=== PATIENT | male | born 1935 | race Caucasian/White ===

== ENCOUNTER 2017-10-31 09:10 | Day surgery (SDC) | payer MEDICARE, OTHER ==
[~2017-10-31 09:10] MED LIST: Gatifloxacin 0.5% Ophth Soln 2.5 ML Bot EYERT SCH; Lactated Ringers 1,000 ML IV SCH; Sodium Chloride 0.9% 5 ML Syringe FLUSH PRN
[2017-10-31] MEDS: Cyclopentolate 1% Opth Soln 2 ML Bottle EYERT SCH ×3 (09:26→10:00)
[2017-10-31] MEDS: Phenylephrine 10% Ophth Soln 5 ML Bot EYERT SCH ×3 (09:30→10:06)
[2017-10-31] MEDS ORDERED: Balanced Salt Solution Plus Ophth Irrig 500 ML Bottle IOCULAR ONE (10:46)
[2017-10-31] MEDS ORDERED: Balanced Salt Solution Ophth Irrig 15 ML Bottle EYERT ONE (10:46)
[2017-10-31] MEDS ORDERED: Water For Irrigation,Sterile 1,500 ML Container IRR ONE (10:46)
[2017-10-31] MEDS ORDERED: Dexamethasone/Neomycin/Polymyxin B Ophth Oint 3.5 GM Tube EYERT ONE (10:47)
[2017-10-31] MEDS ORDERED: Lidocaine 2% with EPINEPHrine 1:100,000 20 ML MDV INJECT ONE (10:47)
[2017-10-31] MEDS ORDERED: EPINEPHrine 1 MG/ML SDV ONE (10:47)
[2017-10-31] MEDS ORDERED: Carbachol 0.01% Intraocular 1.5 ML Vial EYERT ONE (10:47)
[2017-10-31] MEDS ORDERED: Tetracaine HCl/PF 0.5% 4 ML Bottle EYEBOTH ONE (10:48)
[2017-10-31] MEDS ORDERED: Hyaluronate Sodium 1% 0.85 ML Syringe IOCULAR ONE ×2 (10:48)
[2017-10-31] MEDS ORDERED: Lidocaine 1% 10 ML MDV INJECT ONE (10:48)
[2017-10-31 11:30] VITALS: BP 133/70
--- NOTE | 2017-11-01 10:07 | OR ---
DATE OF SURGERY: 10/31/2017 SURGEON: Luis Armando Lou MD PREOPERATIVE DIAGNOSIS: Cataract, right eye. POSTOPERATIVE DIAGNOSIS: Cataract, right eye. OPERATION PERFORMED: Phacoemulsification with posterior chamber lens insertion, right eye. HISTORY: The patient presents at this time with increasing difficulties as he tries to read. The vision for the right eye is 20/150. The lens of the right eye has a 3+ nuclear sclerosis, a 3+ cortical change, and a 2+ posterior subcapsular change. 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 FINDINGS: The patient was taken to the operating room where appropriate anesthesia, sedation and monitoring were provided. A retrobulbar block was given on the right side. The eye was massaged and was found to be appropriately soft. The eye and eyelids were then prepped and draped in the usual sterile manner. A lid speculum was placed. A micro sharp blade was used to enter the anterior chamber inside the limbus superior-temporally. Xylocaine was irrigated into the eye at this site. Healon was irrigated into the eye through this site. Then using a 2.85 mm corneal blade an entry was made into the anterior chamber just inside the limbus temporally. Healon was again irrigated into the eye. Then using a cystitome, the anterior capsulorrhexis was created. The lens nucleus was hydrodissected using a 27 gauge cannula and balanced salt solution. The phacoemulsification unit was introduced through the temporal site and the Michael spatula through the superior temporal site. In so doing, the lens nucleus was phacoemulsified. The cortical fragments of the lens were removed using the irrigation aspiration unit. The posterior capsule was polished. Healon was irrigated into the eye. The posterior chamber lens was inserted and rotated into position inside the capsular bag. The Healon was irrigated out of the eye. Miostat was irrigated into the eye and the pupil rounded nicely. A single interrupted 10-0 Nylon suture was placed through the temporal corneal incision site. Balanced salt solution was irrigated into the eye. The wound was tested and found to be tight. Maxitrol ointment was placed into the patient's right eye. The eyelids were closed and an eye patch and mccartney shield were placed. The patient left the operating room in good condition. /[id number]/MODL
== END 2017-10-31 11:45 | disposition home or self-care (01) ==
LOC: KA.SDS 09:10
PROVIDERS: ATTEND Ophthalmology
DX: H26.9 Unspecified cataract (principal); D64.9 Anemia, unspecified; F32.9 Major depressive disorder, single episode, unspecified; M51.36 Other intervertebral disc degeneration, lumbar region; M81.0 Age-related osteoporosis without current pathological fracture; M19.072 Primary osteoarthritis, left ankle and foot; M19.071 Primary osteoarthritis, right ankle and foot; M48.061 Spinal stenosis, lumbar region without neurogenic claudication; M41.9 Scoliosis, unspecified; N40.0 Benign prostatic hyperplasia without lower urinary tract symptoms; D50.9 Iron deficiency anemia, unspecified; Z85.828 Personal history of other malignant neoplasm of skin; Z79.899 Other long term (current) drug therapy; Z79.82 Long term (current) use of aspirin; Z88.0 Allergy status to penicillin; Z91.030 Bee allergy status
CPT/HCPCS: 00142; A9270-GY; C1780; J0171; J7120

== ENCOUNTER 2017-11-12 15:30 | Inpatient (IN) | payer MEDICARE, OTHER ==
[2017-11-12] MEDS ORDERED: Albuterol/Ipratropium 3.0-0.5 MG/3 ML Neb Soln NEB ONE (16:12)
--- NOTE | 2017-11-12 16:19 | EDM.PDOC ---
ED HPI GENERAL MEDICAL PROBLEM - General Chief Complaint: Respiratory Problem Stated Complaint: SHORTNESS OF BREATH Time Seen by Provider: 11/12/17 15:48 Source of Information: Reports: Patient, Family ( ) History Limitations: Reports: No Limitations - History of Present Illness INITIAL COMMENTS - FREE TEXT/NARRATIVE: PATIENT IS AN 82-YEAR-OLD GENTLEMAN WHO PRESENTS TO THE EMERGENCY DEPARTMENT THIS AFTERNOON WITH A COMPLAINT OF SHORTNESS OF BREATH. PATIENT STATES THAT WHILE HE IS IN THE BASEMENT OF HIS HOME, HE NOTICES THAT IT BECOMES HARDER TO BREATHE, AND HE WALKS UP THE STAIRS TO THE FIRST LEVEL OF THE HOME. HE BECOMES MORE SHORT OF BREATH HE WALKS UP THE STAIRS. HOWEVER, AFTER SITTING AND RESTING FOR A SHORT PERIOD OF TIME WHILE ON THE FIRST FLOOR, SHORTNESS OF BREATH RESOLVES. AT NO TIME DOES PATIENT HAVE CHEST PAIN, DIZZINESS, OR VISION CHANGES. NOTICED THIS HAPPENING MORE FREQUENTLY. IT'S BEEN OCCURRING APPROXIMATELY TWICE PER DAY FOR THE LAST WEEK. PATIENT STATES THAT THE FUEL OIL SUPPLY IS LOCATED IN THE BASEMENT, BUT IS UNAWARE OF ANY FUMES OR NOTICES ANY ODOR. PATIENT HAS ALSO DEVELOPED MILD SHAKING OF THE HANDS, AND HIS PRIMARY CARE PROVIDER HAS ADDRESSED THIS WITH A FOLLOW-UP VISIT TO DETERMINE IF HE HAS PARKINSON'S DISEASE. PATIENT DID UNDERGO BILATERAL CATARACT SURGERY 2 WEEKS AGO, WELL SUSPECTED MALIGNANT LESIONS ON FACE REMOVED LAST WEEK BY DERMATOLOGY. PATIENT DENIES FEVER, CHEST PAIN, NAUSEA, VOMITING, DIARRHEA, OUT OF COUNTRY TRAVEL, HEADACHE OR DIZZINESS. Onset: Gradual Duration: Week(s): Severity: Mild Improves with: Reports: Rest Worsens with: Reports: Movement Context: Reports: Activity Associated Symptoms: Reports: Shortness of Breath. Denies: Chest Pain - Related Data Allergies Allergy/AdvReac Type Severity Reaction Status Date / Time Penicillins Allergy Hives Verified 11/12/17 15:39 BEE STINGS Allergy UNKNOWN Uncoded 11/12/17 15:39 Home Meds: Home Meds Acetaminophen [Tylenol Extra Strength] 1,000 mg PO TID 03/16/14 [History] DULoxetine [Cymbalta] 60 mg PO DAILY 03/16/14 [History] Multivitamin [Multi Vitamin Daily] 1 tab PO DAILY 03/16/14 [History] Omeprazole 60 mg PO DAILY 03/16/14 [History] traMADol [Ultram] 50 mg PO TID 03/16/14 [History] Ascorbic Acid [Vitamin C] 250 mg PO DAILY 10/30/17 [History] Aspirin [Halfprin] 81 mg PO DAILY 10/30/17 [History] Cholecalciferol (Vitamin D3) [Vitamin D3] 5,000 unit PO DAILY 10/30/17 [History] Gluc HCl/Csa/Tran Hy/Hyalur Ac [Glucosamine Chondroitin] 1 each PO DAILY [History] Iron Polysaccharides Complex [Ferrex 150] 150 mg PO DAILY 10/30/17 [History] Magnesium Oxide 400 mg PO DAILY 10/30/17 [History] Past Medical History HEENT History: Reports: Cataract, Impaired Vision Cardiovascular History: Reports: Hypertension Other Gastrointestinal History: esophageal ulcers Genitourinary History: Reports: BPH Musculoskeletal History: Reports: Arthritis, Back Pain, Chronic, Osteoarthritis , Osteoporosis, RA Other Musculoskeletal History: chronic ankle pain Psychiatric History: Reports: Depression Hematologic History: Reports: Anemia, Blood Transfusion(s) Oncologic (Cancer) History: Reports: Squamous Cell Carcinoma Other Oncologic History: neoplasm of uncertain behavior of stomach, intestines and rectum - Infectious Disease History Infectious Disease History: Reports: Chicken Pox, Measles, Mumps - Past Surgical History HEENT Surgical History: Reports: Cataract Surgery, Oral Surgery, Tonsillectomy Cardiovascular Surgical History: Reports: None GI Surgical History: Reports: Colonoscopy Musculoskeletal Surgical History: Reports: Hip Replacement Oncologic Surgical History: Reports: Biopsy of Breast Social & Family History - Tobacco Use Smoking Status *Q: Current Every Day Smoker Years of Tobacco use: 40 Packs/Tins Daily: 2 Used Tobacco, but Quit: No Second Hand Smoke Exposure: No - Caffeine Use Caffeine Use: Reports: Soda Other Caffeine Use: regular - Alcohol Use Days Per Week of Alcohol Use: 3 Number of Drinks Per Day: 1 Total Drinks Per Week: 3 - Recreational Drug Use Recreational Drug Use: No ED ROS GENERAL - Review of Systems Review Of Systems: ROS reveals no pertinent complaints other than HPI. Constitutional: Reports: No Symptoms HEENT: Reports: No Symptoms Respiratory: Reports: Shortness of Breath Cardiovascular: Reports: No Symptoms Endocrine: Reports: No Symptoms GI/Abdominal: Reports: No Symptoms : Reports: No Symptoms Musculoskeletal: Reports: No Symptoms Skin: Reports: No Symptoms Neurological: Reports: No Symptoms Psychiatric: Reports: No Symptoms Hematologic/Lymphatic: Reports: No Symptoms Immunologic: Reports: No Symptoms ED EXAM, GENERAL - Physical Exam Exam: See Below Exam Limited By: No Limitations General Appearance: Alert, WD/WN, No Apparent Distress Nose: Normal Inspection, Normal Mucosa, No Blood Throat/Mouth: Normal Inspection, Normal Oropharynx, No Airway Compromise Head: Atraumatic, Normocephalic Neck: Normal Inspection, Supple Respiratory/Chest: No Respiratory Distress, No Accessory Muscle Use, Chest Non- Tender, Rales (BIBASILAR) Cardiovascular: Regular Rate, Rhythm, Diastolic Murmur GI/Abdominal: Normal Bowel Sounds, Soft, Non-Tender, No Organomegaly, No Distention, No Abnormal Bruit, No Mass Back Exam: Normal Inspection. No: CVA Tenderness (L), CVA Tenderness (R) Extremities: Normal Inspection, Non-Tender, Normal Capillary Refill, Pedal Edema (2+ bilateral) Neurological: Alert, Oriented, Normal Cognition Psychiatric: Normal Affect, Normal Mood Skin Exam: Warm, Dry, Intact, Normal Color, No Rash, Other (LEFT TEMPORAL REGION WITH 5 CM LINEAR INCISION WITH SUTURES INTACT.) EKG INTERPRETATION EKG Date: 11/12/17 Time: 16:45 Rhythm: NSR [place]: LAD-Left [place] Deviation QRS: RBBB ST-T: Normal QT: Normal Comparison: NA - No Prior EKG Course - Vital Signs Last Recorded V/S: Last Vital Signs Temp 97.8 F 11/12/17 15:36 Pulse 85 11/12/17 15:36 Resp 20 11/12/17 15:36 BP 150/90 H 11/12/17 15:36 Pulse Ox 92 L 11/12/17 15:36 - Orders/Labs/Meds Orders: Active Orders 24 hr Category Date Time Status Patient Status [ADT] Routine ADT 11/12/17 17:17 Ordered EKG Documentation Completion [RC] ASDIRECTED Care 11/12/17 16:11 Active Oxygen Therapy [RC] PRN Care 11/12/17 17:17 Ordered Peripheral IV Care [RC] . DIRECTED Care 11/12/17 17:06 Active RT Aerosol Therapy [RC] ASDIRECTED Care 11/12/17 16:12 Active VTE/DVT Education [RC] PER UNIT ROUTINE Care 11/12/17 17:17 Ordered Vital Signs [RC] Q4H Care 11/12/17 17:17 Ordered Chest 2V [CR] Stat Exams 11/12/17 16:10 Ordered TROPONIN I [CHEM] Stat Lab 11/12/17 17:15 Ordered TSH ULTRASENSITIVE [CHEM] Stat Lab 11/12/17 17:15 Ordered Sodium Chloride 0.9% [Syrex Flush] Med 11/12/17 17:06 Active 5 ml FLUSH Q8HR PRN Peripheral IV Insertion Adult [OM.PC] Routine Oth 11/12/17 17:06 Ordered Resuscitation Status Routine Resus Stat 11/12/17 17:17 Ordered EKG 12 Lead [EK] Routine Ther 11/12/17 16:10 Ordered Medication Orders Sodium Chloride (Syrex Flush) 5 ml FLUSH Q8HR PRN PRN Reason: Keep Vein Open Labs: Laboratory Tests 11/12/17 11/12/17 Range/Units 15:21 15:21 WBC 7.1 (5.0-10.0) 10^3/uL RBC 4.23 L (4.50-6.00) 10^6/uL Hgb 12.6 L (13.0-17.0) g/dL Hct 39.3 L (40.0-52.0) % MCV 92.9 H (82.0-92.0) fL MCH 29.8 (27.0-31.0) pg MCHC 32.1 (32.0-36.0) g/dL RDW 12.9 (11.5-14.5) % Plt Count 362 H D (150-300) 10^3/uL MPV 7.6 (7.4-10.4) fL Neut % (Auto) 78.6 H (50.0-70.0) % Lymph % (Auto) 10.6 L (20.0-40.0) % [place] % (Auto) 7.9 (2.0-8.0) % Eos % (Auto) 2.8 (1.0-3.0) % Baso % (Auto) 0.1 (0.0-1.0) % Neut # (Auto) 5.5 (2.5-7.0) 10^3/uL Lymph # (Auto) 0.8 L (1.0-4.0) 10^3/uL [place] # (Auto) 0.6 (0.1-0.8) 10^3/uL Eos # (Auto) 0.2 (0.1-0.3) 10^3/uL Baso # (Auto) 0.0 (0.0-0.1) 10^3/uL Sodium 146 H (136-145) mmol/L Potassium 4.0 (3.3-5.3) mmol/L Chloride 104 (98-115) mmol/L Carbon Dioxide 27.0 (21.0-32.0) mmol/L BUN 16 (6-25) mg/dL Creatinine 1.00 (0.51-1.17) mg/dL Est Cr Clr Drug Dosing 46.87 mL/min Estimated GFR (MDRD) > 60 mL/min Glucose 116 H (70-110) mg/dL Calcium 9.2 (8.7-10.3) mg/dL Total Bilirubin 1.2 H (0.2-1.0) mg/dL AST 20 (15-37) U/L ALT 29 (12-78) U/L Alkaline Phosphatase 122 H (46-116) IU/L B-Natriuretic Peptide 1660 H (0-100) pg/mL Total Protein 7.1 (6.4-8.2) g/dL Albumin 3.25 (3.00-4.80) g/dL Meds: Medications Generic Name Dose Route Start Last Admin Trade Name Freq PRN Reason Stop Dose Admin Sodium Chloride 5 ml 11/12/17 17:06 Syrex Flush FLUSH Q8HR PRN Keep Vein Open Discontinued Medications Generic Name Dose Route Start Last Admin Trade Name Freq PRN Reason Stop Dose Admin Albuterol/Ipratropium 3 ml 11/12/17 16:12 Duoneb 3.0-0.5 Mg/3 Ml NEB 11/12/17 16:13 ONETIME ONE Furosemide 20 mg 11/12/17 17:06 Lasix IVPUSH 11/12/17 17:07 NOW ONE - Radiology Interpretation Free Text/Narrative:: Chest x-ray shows moderate pulmonary vascular congestion in both lungs. Bibasilar pleural effusions. - Re-Assessments/Exams Free Text/Narrative Re-Assessment/Exam: 11/12/17 17:19 Patient afebrile, nontoxic appearing, vital signs stable, 92 sat on room air. Patient denies chest pain at this time. 20 mg Lasix was given IV. Case is discussed with Dr. Tony singh and patient will be admitted and followed. Departure - Departure Time of Disposition: 17:20 Disposition: Admitted As Inpatient 65 Condition: Fair Clinical Impression: Congestive heart failure Qualifiers: Heart failure type: unspecified Heart failure chronicity: acute Qualified Code( s): I50.9 - Heart failure, unspecified - Discharge Information Referrals: Manolo Roche TRAFF[employer] SYSTEM DISPATCHER [Primary Care Provider] - Forms: ED Department Discharge - My Orders Last 24 Hours: My Active Orders 11/12/17 16:10 Chest 2V [CR] Stat EKG 12 Lead [EK] Routine 11/12/17 16:11 EKG Documentation Completion [RC] ASDIRECTED 11/12/17 16:12 RT Aerosol Therapy [RC] ASDIRECTED 11/12/17 17:06 Peripheral IV Care [RC] . DIRECTED Sodium Chloride 0.9% [Syrex Flush] 5 ml FLUSH Q8HR PRN Peripheral IV Insertion Adult [OM.PC] Routine 11/12/17 17:15 TROPONIN I [CHEM] Stat TSH ULTRASENSITIVE [CHEM] Stat 11/12/17 17:17 Patient Status [ADT] Routine Oxygen Therapy [RC] PRN VTE/DVT Education [RC] PER UNIT ROUTINE Vital Signs [RC] Q4H Resuscitation Status Routine - Assessment/Plan Last 24 Hours: My Active Orders 11/12/17 16:10 Chest 2V [CR] Stat EKG 12 Lead [EK] Routine 11/12/17 16:11 EKG Documentation Completion [RC] ASDIRECTED 11/12/17 16:12 RT Aerosol Therapy [RC] ASDIRECTED 11/12/17 17:06 Peripheral IV Care [RC] . DIRECTED Sodium Chloride 0.9% [Syrex Flush] 5 ml FLUSH Q8HR PRN Peripheral IV Insertion Adult [OM.PC] Routine 11/12/17 17:15 TROPONIN I [CHEM] Stat TSH ULTRASENSITIVE [CHEM] Stat 11/12/17 17:17 Patient Status [ADT] Routine Oxygen Therapy [RC] PRN VTE/DVT Education [RC] PER UNIT ROUTINE Vital Signs [RC] Q4H Resuscitation Status Routine Assessment:: Congestive heart failure Plan: Admit inpatient to [place]
[2017-11-12 16:48] LABS: CHLORIDE,CL 104 mmol/L (98-115); SODIUM,NA 146 mmol/L (136-145)
[2017-11-12] MEDS ORDERED: Furosemide 40 MG/4 ML VIAL IVPUSH ONE (17:06)
[2017-11-12] MEDS ORDERED: Aspirin 81 MG Tab.Chew PO ONE (20:27)
[2017-11-12] MEDS ORDERED: Nitroglycerin 0.4 MG Tab.SL SL PRN (20:28)
[2017-11-12] MEDS: Acetaminophen 500 MG Tab PO SCH (20:30)
[2017-11-12] MEDS ORDERED: atorvaSTATin 40 MG Tab ONE (20:46)
[2017-11-12] MEDS: atorvaSTATin 40 MG Tab PO SCH (20:55)
[2017-11-12] MEDS: traMADol 50 MG Tab PO SCH (20:56)
[2017-11-12] MEDS ORDERED: LORazepam 0.5 MG Tab PO ONE (22:45)
[2017-11-13] MEDS: Omeprazole 20 MG Cap.CR PO SCH (07:33)
[2017-11-13] MEDS: Sodium Chloride 0.9% 5 ML Syringe FLUSH PRN (07:33)
[2017-11-13 07:35] LABS: CHLORIDE,CL 104 mmol/L (98-115); SODIUM,NA 139 mmol/L (136-145)
[2017-11-13] MEDS ORDERED: Furosemide 40 MG/4 ML VIAL IVPUSH SCH (08:15)
[2017-11-13] MEDS: Chondroitin/Glucosamine Cap PO SCH (08:41)
[2017-11-13] MEDS: traMADol 50 MG Tab PO SCH ×3 (08:41→21:00)
[2017-11-13] MEDS: Aspirin 81 MG Tab.EC PO SCH (08:41)
[2017-11-13] MEDS: Acetaminophen 500 MG Tab PO SCH ×3 (08:41→21:00)
[2017-11-13] MEDS: Magnesium Oxide 500 MG Tab PO SCH (08:41)
[2017-11-13] MEDS: Ascorbic Acid 500 MG Tab PO SCH (08:42)
[2017-11-13] MEDS: DULoxetine 30 MG Cap PO SCH (08:42)
[2017-11-13] MEDS: Multivitamins with Minerals/Iron/Folic Acid/Lycopene Tab PO SCH (08:42)
[2017-11-13] MEDS ORDERED: Iron Polysaccharides Complex 150 MG Cap PO SCH (09:00)
[2017-11-13] MEDS ORDERED: Cholecalciferol (Vitamin D3) 1,000 Unit Tab PO SCH (09:00)
[2017-11-13] MEDS: Cholecalciferol (Vitamin D3) 1,000 Unit Tab PO SCH (09:48)
[2017-11-13] MEDS: ARIPiprazole 5 MG Tab PO SCH (11:41)
[2017-11-13] MEDS: hydrOXYzine HCl 25 MG Tab PO PRN ×2 (11:41→17:54)
[2017-11-13] MEDS: GATIFLOXACIN 0.5% EYERT SCH ×3 (11:43→20:31)
[2017-11-13] MEDS: PREDNISOLONE ACETATE EYERT SCH ×3 (11:44→20:34)
--- NOTE | 2017-11-13 11:53 | PCM.HP ---
H&P History of Present Illness - General Date of Service: 11/13/17 Admit Problem/Dx: Admission Diagnosis/Problem Admission Diagnosis/Problem CHF, Congestive heart failure Source of Information: Patient, Old Records, Provider (Manolo Duran PA-C (ED provider)), RN, Significant Other History Limitations: Reports: No Limitations - History of Present Illness Initial Comments - Free Text/Narative: Mr. Lopez was in his baseline state of health until the last 2-3 weeks when he has noticed increased shortness of breath. On the morning of admission, he noted dramatic worsening in his shortness of breath and felt like he was smothered and couldn't take a deep breath. His brought him to the [facility] ED for evaluation. In the ED, he was noted to have borderline low oxygen, mildly elevated BP, and pulmonary exam with evidence of overload. Work-up was notable for unremarkable CBC and CMP, but with BNP 1660 and CXR with evidence of heart failure with moderate pulmonary vascular congestion, bilateral pleural effusions, and bibasilar atelectasis. EKG was stable from prior with RBBB. He was given Lasix 20mg IV and started on supplemental oxygen. I was called for admission and requested the addition of a troponin and TSH, which was notable for an elevated troponin. This morning, Mr. Lopez states that his shortness of breath has improved, but is still moderately present. He has chronic bilateral ankle edema without any recent change. At baseline, he had a salt-heavy diet, but hasn't made any dramatic changes lately. He has slept in a recliner for decades without any notable change in sleep. He admits to an "anxious feeling" in his stomach from time to time, but denies any chest pain, palpitations, or other new cardiac symptoms. He denies any cough or sputum production. His states that he has been more anxious in the past several months. He was started on Abilify about 3 months ago for these symptoms, but stopped after a month because he felt he was doing better. - Related Data Allergies/Adverse Reactions: Allergies Allergy/AdvReac Type Severity Reaction Status Date / Time Penicillins Allergy Hives Verified 11/12/17 15:39 BEE STINGS Allergy UNKNOWN Uncoded 11/12/17 15:39 Home Medications: Home Meds Acetaminophen [Tylenol Extra Strength] 1,000 mg PO TID 03/16/14 [History] DULoxetine [Cymbalta] 60 mg PO DAILY 03/16/14 [History] Multivitamin [Multi Vitamin Daily] 1 tab PO DAILY 03/16/14 [History] Omeprazole 60 mg PO DAILY 03/16/14 [History] traMADol [Ultram] 50 mg PO TID 03/16/14 [History] Ascorbic Acid [Vitamin C] 250 mg PO DAILY 10/30/17 [History] Aspirin [Halfprin] 81 mg PO DAILY 10/30/17 [History] Cholecalciferol (Vitamin D3) [Vitamin D3] 5,000 unit PO DAILY 10/30/17 [History] Gluc HCl/Csa/Tran Hy/Hyalur Ac [Glucosamine Chondroitin] 1 each PO DAILY [History] Iron Polysaccharides Complex [Ferrex 150] 150 mg PO DAILY 10/30/17 [History] Magnesium Oxide 400 mg PO DAILY 10/30/17 [History] Gatifloxacin 1 drop EYERT QID 11/12/17 [History] Latanoprost 1 drop EYEBOTH BEDTIME 11/12/17 [History] prednisoLONE Acetate [Pred Forte 1% Ophth Susp] 1 drop EYERT QID 11/12/17 [ History] Past Medical History HEENT History: Reports: Cataract, Impaired Vision Cardiovascular History: Reports: Hypertension Other Gastrointestinal History: esophageal ulcers Genitourinary History: Reports: BPH Musculoskeletal History: Reports: Arthritis, Back Pain, Chronic, Osteoarthritis , Osteoporosis, RA Other Musculoskeletal History: chronic ankle pain Psychiatric History: Reports: Depression Hematologic History: Reports: Anemia, Blood Transfusion(s) Oncologic (Cancer) History: Reports: Basal Cell Carcinoma, Squamous Cell Carcinoma Other Oncologic History: neoplasm of uncertain behavior of stomach, intestines and rectum - Infectious Disease History Infectious Disease History: Reports: Chicken Pox, Measles, Mumps - Past Surgical History HEENT Surgical History: Reports: Cataract Surgery, Oral Surgery, Tonsillectomy Cardiovascular Surgical History: Reports: None GI Surgical History: Reports: Colonoscopy Musculoskeletal Surgical History: Reports: Hip Replacement Oncologic Surgical History: Reports: Biopsy of Breast Social & Family History - Tobacco Use Smoking Status *Q: Current Every Day Smoker Years of Tobacco use: 40 Packs/Tins Daily: 1 Used Tobacco, but Quit: No Second Hand Smoke Exposure: No - Caffeine Use Caffeine Use: Reports: Soda Other Caffeine Use: regular - Alcohol Use Days Per Week of Alcohol Use: 3 Number of Drinks Per Day: 1 Total Drinks Per Week: 3 - Recreational Drug Use Recreational Drug Use: No H&P Review of Systems - Review of Systems: Review Of Systems: See Below General: Reports: Weakness, Fatigue. Denies: Fever, Chills, Malaise, Decreased Appetite, Weight Loss, Weight Gain HEENT: Reports: Other (recent cataract surgery). Denies: Eye Pain Pulmonary: Reports: Shortness of Breath. Denies: Wheezing, Pleuritic Chest Pain , Cough, Sputum, Hemoptysis Cardiovascular: Reports: Dyspnea on Exertion, Orthopnea, PND, Edema. Denies: Chest Pain, Palpitations Gastrointestinal: Reports: Abdominal Pain (chronic). Denies: Black Stool, Bloody Stool, Constipation, Diarrhea, Decreased Appetite, Nausea, Vomiting Genitourinary: Denies: Dysuria, Pain Musculoskeletal: Reports: Joint Pain (chronic) Skin: Reports: No Symptoms Psychiatric: Reports: Mood Lability, Anxiety. Denies: Confusion, Depression Neurological: Reports: Tremors (chronic). Denies: Headache, Numbness, Syncope, Tingling Hematologic/Lymphatic: Reports: No Symptoms Immunologic: Reports: No Symptoms Exam - Exam Exam: See Below - Vital Signs Vital Signs: Last Vital Signs Temp 36.6 C 11/13/17 11:00 Pulse 83 11/13/17 11:00 Resp 20 11/13/17 11:00 BP 122/84 11/13/17 11:00 Pulse Ox 98 11/13/17 11:00 Weight: 61.643 kg - Exam Physical Exam Comments:: GENERAL: Chronically ill-appearing elderly male lying in hospital bed in no acute distress; at bedside. HEENT: Normocephalic, atraumatic. Conjunctiva clear. Nares patent without discharge. Mucous membranes moist, posterior pharynx unremarkable. NECK: Supple, no masses. CV: Regular rate and rhythm, no murmurs, rubs, or gallops. 2+ radial pulses. PULMONARY: Normal effort, bibasilar crackles, no wheezes. ABDOMEN: Positive bowel sounds, soft, nontender, nondistended, well healed midline scar. EXTREMITIES: 1+ pedal edema; no cyanosis or clubbing. MUSCULOSKELETAL: Moves all extremities well. Ambulates with walker. NEUROLOGICAL: No obvious deficits. DERMATOLOGIC: No rashes or suspicious lesions in exposed areas. PSYCHIATRIC: Alert, interactive, sedated, mildly flattened affect. - Patient Data Lab Results Last 24 hrs: Laboratory Results - last 24 hr 11/12/17 11/12/17 11/12/17 Range/Units 15:21 15:21 15:21 WBC 7.1 (5.0-10.0) 10^3/uL RBC 4.23 L (4.50-6.00) 10^6/uL Hgb 12.6 L (13.0-17.0) g/dL Hct 39.3 L (40.0-52.0) % MCV 92.9 H (82.0-92.0) fL MCH 29.8 (27.0-31.0) pg MCHC 32.1 (32.0-36.0) g/dL RDW 12.9 (11.5-14.5) % Plt Count 362 H D (150-300) 10^3/uL MPV 7.6 (7.4-10.4) fL Neut % (Auto) 78.6 H (50.0-70.0) % Lymph % (Auto) 10.6 L (20.0-40.0) % [place] % (Auto) 7.9 (2.0-8.0) % Eos % (Auto) 2.8 (1.0-3.0) % Baso % (Auto) 0.1 (0.0-1.0) % Neut # (Auto) 5.5 (2.5-7.0) 10^3/uL Lymph # (Auto) 0.8 L (1.0-4.0) 10^3/uL [place] # (Auto) 0.6 (0.1-0.8) 10^3/uL Eos # (Auto) 0.2 (0.1-0.3) 10^3/uL Baso # (Auto) 0.0 (0.0-0.1) 10^3/uL Sodium 146 H (136-145) mmol/L Potassium 4.0 (3.3-5.3) mmol/L Chloride 104 (98-115) mmol/L Carbon Dioxide 27.0 (21.0-32.0) mmol/L BUN 16 (6-25) mg/dL Creatinine 1.00 (0.51-1.17) mg/dL Est Cr Clr Drug Dosing 46.87 mL/min Estimated GFR (MDRD) > 60 mL/min Glucose 116 H (70-110) mg/dL Calcium 9.2 (8.7-10.3) mg/dL Total Bilirubin 1.2 H (0.2-1.0) mg/dL AST 20 (15-37) U/L ALT 29 (12-78) U/L Alkaline Phosphatase 122 H (46-116) IU/L Troponin I 0.14 H* (0.00-0.070) ng/mL B-Natriuretic Peptide 1660 H (0-100) pg/mL Total Protein 7.1 (6.4-8.2) g/dL Albumin 3.25 (3.00-4.80) g/dL TSH, Ultra Sensitive 1.440 (0.340-4.820) uIU/mL 11/12/17 11/13/17 11/13/17 Range/Units 19:31 01:05 06:55 WBC (5.0-10.0) 10^3/uL RBC (4.50-6.00) 10^6/uL Hgb (13.0-17.0) g/dL Hct (40.0-52.0) % MCV (82.0-92.0) fL MCH (27.0-31.0) pg MCHC (32.0-36.0) g/dL RDW (11.5-14.5) % Plt Count (150-300) 10^3/uL MPV (7.4-10.4) fL Neut % (Auto) (50.0-70.0) % Lymph % (Auto) (20.0-40.0) % [place] % (Auto) (2.0-8.0) % Eos % (Auto) (1.0-3.0) % Baso % (Auto) (0.0-1.0) % Neut # (Auto) (2.5-7.0) 10^3/uL Lymph # (Auto) (1.0-4.0) 10^3/uL [place] # (Auto) (0.1-0.8) 10^3/uL Eos # (Auto) (0.1-0.3) 10^3/uL Baso # (Auto) (0.0-0.1) 10^3/uL Sodium 139 (136-145) mmol/L Potassium 3.8 (3.3-5.3) mmol/L Chloride 104 (98-115) mmol/L Carbon Dioxide 28.0 (21.0-32.0) mmol/L BUN 17 (6-25) mg/dL Creatinine 1.10 (0.51-1.17) mg/dL Est Cr Clr Drug Dosing 42.61 mL/min Estimated GFR (MDRD) > 60 mL/min Glucose 106 (70-110) mg/dL Calcium 8.8 (8.7-10.3) mg/dL Total Bilirubin 1.6 H (0.2-1.0) mg/dL AST 21 (15-37) U/L ALT 26 (12-78) U/L Alkaline Phosphatase 119 H (46-116) IU/L Troponin I 0.15 H* 0.16 H* 0.13 H* (0.00-0.070) ng/mL B-Natriuretic Peptide (0-100) pg/mL Total Protein 6.9 (6.4-8.2) g/dL Albumin 3.12 (3.00-4.80) g/dL TSH, Ultra Sensitive (0.340-4.820) uIU/mL 11/13/17 Range/Units 06:55 WBC 8.4 (5.0-10.0) 10^3/uL RBC 4.18 L (4.50-6.00) 10^6/uL Hgb 12.5 L (13.0-17.0) g/dL Hct 38.6 L (40.0-52.0) % MCV 92.3 H (82.0-92.0) fL MCH 29.9 (27.0-31.0) pg MCHC 32.4 (32.0-36.0) g/dL RDW 12.7 (11.5-14.5) % Plt Count 334 H (150-300) 10^3/uL MPV 7.6 (7.4-10.4) fL Neut % (Auto) 75.8 H (50.0-70.0) % Lymph % (Auto) 10.4 L (20.0-40.0) % [place] % (Auto) 8.7 H (2.0-8.0) % Eos % (Auto) 5.0 H (1.0-3.0) % Baso % (Auto) 0.1 (0.0-1.0) % Neut # (Auto) 6.4 (2.5-7.0) 10^3/uL Lymph # (Auto) 0.9 L (1.0-4.0) 10^3/uL [place] # (Auto) 0.7 (0.1-0.8) 10^3/uL Eos # (Auto) 0.4 H (0.1-0.3) 10^3/uL Baso # (Auto) 0.0 (0.0-0.1) 10^3/uL Sodium (136-145) mmol/L Potassium (3.3-5.3) mmol/L Chloride (98-115) mmol/L Carbon Dioxide (21.0-32.0) mmol/L BUN (6-25) mg/dL Creatinine (0.51-1.17) mg/dL Est Cr Clr Drug Dosing mL/min Estimated GFR (MDRD) mL/min Glucose (70-110) mg/dL Calcium (8.7-10.3) mg/dL Total Bilirubin (0.2-1.0) mg/dL AST (15-37) U/L ALT (12-78) U/L Alkaline Phosphatase (46-116) IU/L Troponin I (0.00-0.070) ng/mL B-Natriuretic Peptide (0-100) pg/mL Total Protein (6.4-8.2) g/dL Albumin (3.00-4.80) g/dL TSH, Ultra Sensitive (0.340-4.820) uIU/mL Result Diagrams: 11/13/17 06:55 11/13/17 06:55 Problem List Initiated/Reviewed/Updated: Yes Orders Last 24hrs: Active Orders 24 hr Category Date Time Status Patient Status [ADT] Routine ADT 11/12/17 17:17 Ordered Cardiac Monitoring [RC] 0300,0700,1100,1500,1900,2300 Care 11/12/17 17:57 Active Daily Weight [Height and Weight] [RC] 0700 Care 11/12/17 17:58 Active Intake and Output Strict [RC] Q8HR Care 11/12/17 17:57 Active Oxygen Therapy [RC] DAILY Care 11/12/17 17:17 Active Peripheral IV Care [RC] QSHIFT Care 11/12/17 17:06 Active RT Aerosol Therapy [RC] ASDIRECTED Care 11/12/17 16:12 Active Vital Signs [RC] 0300,0700,1100,1500,1900,2300 Care 11/12/17 17:17 Active Consult to Physical Therapy [PT Evaluation and Cons 11/13/17 09:42 Active Treatment] [CONS] Routine Heart Healthy Diet [DIET] Diet 11/13/17 Breakfast Active CBC W/O DIFF,HEMOGRAM [HEME] AM Lab 11/14/17 05:11 Ordered CMP [COMPREHENSIVE METABOLIC PN,CMP] [CHEM] AM Lab 11/14/17 05:11 Ordered LIPID PANEL [CHEM] AM Lab 11/14/17 05:11 Ordered ARIPiprazole [Abilify] Med 11/13/17 11:15 Active 5 mg PO DAILY Acetaminophen [Tylenol Extra Strength] Med 11/12/17 21:00 Active 1,000 mg PO TID Ascorbic Acid [Vitamin C] Med 11/13/17 09:00 Active 250 mg PO DAILY Aspirin [Halfprin] Med 11/13/17 09:00 Active 81 mg PO DAILY Cholecalciferol (Vitamin D3) [Vitamin D3] Med 11/13/17 09:00 Active 4,000 units PO DAILY Chondroitin/Glucosamine [Glucosamine-Chondroitin 500- Med 11/13/17 09:00 Active 400 Capsule] 1 cap PO DAILY DULoxetine [Cymbalta] Med 11/13/17 09:00 Active 60 mg PO DAILY Enoxaparin [Lovenox] Med 11/13/17 12:00 Ordered 40 mg SUBCUT Q24H FA/Lycopene/Lut/MV,Ca,Iron,Min [Centrum] Med 11/13/17 09:00 Active 1 tab PO DAILY Furosemide [Lasix] Med 11/13/17 14:00 Once 20 mg IVPUSH 1400 ONE Magnesium Oxide Med 11/13/17 09:00 Active 500 mg PO DAILY Melatonin Med 11/13/17 21:00 Ordered 3 mg PO BEDTIME Nitroglycerin [Nitrostat] Med 11/12/17 20:28 Active 0.4 mg SL ONETIME PRN Omeprazole Med 11/13/17 07:30 Active 40 mg PO ACBREAKFAST Patient's Own Medication [Ptom] Med 11/13/17 21:00 Active 1 each EYEBOTH BEDTIME Patient's Own Medication [Ptom] Med 11/13/17 12:00 Active 1 each EYERT 0800,1200,1600,2000 Patient's Own Medication [Ptom] Med 11/13/17 12:00 Active 1 each EYERT 0800,1200,1600,2000 Sodium Chloride 0.9% [Syrex Flush] Med 11/12/17 17:06 Active 5 ml FLUSH Q8HR PRN atorvaSTATin [Lipitor] Med 11/12/17 21:00 Active 80 mg PO BEDTIME hydrOXYzine HCl [Atarax] Med 11/13/17 11:15 Active 25 mg PO Q6H PRN traMADol [Ultram] Med 11/13/17 12:00 Active 100 mg PO 1200 traMADol [Ultram] Med 11/13/17 21:00 Active 100 mg PO BEDTIME traMADol [Ultram] Med 11/13/17 09:06 Active 50 mg PO QAM Peripheral IV Insertion Adult [OM.PC] Routine Oth 11/12/17 17:06 Ordered Resuscitation Status Routine Resus Stat 11/12/17 17:17 Ordered Medication Orders Acetaminophen (Tylenol Extra Strength) 1,000 mg PO TID [facility] Last Admin: 11/13/17 08:41 Dose: 1,000 mg Admin: 11/12/17 20:30 Dose: 1,000 mg Aripiprazole (Abilify) 5 mg PO DAILY [facility] Last Admin: 11/13/17 11:41 Dose: 5 mg Ascorbic Acid (Vitamin C) 250 mg PO DAILY [facility] Last Admin: 11/13/17 08:42 Dose: 250 mg Aspirin (Halfprin) 81 mg PO DAILY [facility] Last Admin: 11/13/17 08:41 Dose: 81 mg Atorvastatin Calcium (Lipitor) 80 mg PO BEDTIME [facility] Last Admin: 11/12/17 20:55 Dose: 80 mg Cholecalciferol (Vitamin D3) 4,000 units PO DAILY [facility] Last Admin: 11/13/17 09:48 Dose: 4,000 units Duloxetine HCl (Cymbalta) 60 mg PO DAILY [facility] Last Admin: 11/13/17 08:42 Dose: 60 mg Enoxaparin Sodium (Lovenox) 40 mg SUBCUT Q24H [facility] Furosemide (Lasix) 20 mg IVPUSH 1400 ONE Stop: 11/13/17 14:01 Glucosamine/Chondroitin (Glucosamine-Chondroitin 500-400 Capsule) 1 cap PO DAILY [facility] Last Admin: 11/13/17 08:41 Dose: 1 cap Hydroxyzine HCl (Atarax) 25 mg PO Q6H PRN PRN Reason: Anxiety Last Admin: 11/13/17 11:41 Dose: 25 mg Magnesium Oxide (Magnesium Oxide) 500 mg PO DAILY [facility] Last Admin: 11/13/17 08:41 Dose: 500 mg Melatonin (Melatonin) 3 mg PO BEDTIME MEGHA Multivitamins/Minerals (Centrum) 1 tab PO DAILY [facility] Last Admin: 11/13/17 08:42 Dose: 1 tab Nitroglycerin (Nitrostat) 0.4 mg SL ONETIME PRN PRN Reason: Chest Pain Omeprazole (Omeprazole) 40 mg PO ACBREAKFAST [facility] Last Admin: 11/13/17 07:33 Dose: 40 mg Gatifloxacin [ Gatifloxacin] 0.5% 2 .5ml 1 each EYERT 0800,1200,1600,2000 [facility] Last Admin: 11/13/17 11:43 Dose: 1 each Latanoprost [ Latanoprost] 0.005% 2.5ml 1 each EYEBOTH BEDTIME MEGHA Prednisolone Acetate [Pred Forte 1% Ophth Susp] 1 each EYERT 0800,1200,1600, 2000 [facility] Last Admin: 11/13/17 11:44 Dose: 1 each Sodium Chloride (Syrex Flush) 5 ml FLUSH Q8HR PRN PRN Reason: Keep Vein Open Last Admin: 11/13/17 07:33 Dose: 5 ml Tramadol HCl (Ultram) 50 mg PO QAM MEGHA Tramadol HCl (Ultram) 100 mg PO BEDTIME MEGHA Tramadol HCl (Ultram) 100 mg PO 1200 [facility] Assessment/Plan Comment:: HPI Summary: 82yoM with no prior history of cardiopulmonary disease who was in his baseline state of health until the last 2-3 weeks when he has noticed increased shortness of breath. On the morning of admission, he noted dramatic worsening in his shortness of breath and felt like he was smothered and couldn' t take a deep breath. His brought him to the [facility] ED for evaluation. ED Course: He was noted to have borderline low oxygen, mildly elevated BP, and pulmonary exam with evidence of overload. Work-up was notable for unremarkable CBC and CMP, but with BNP 1660 and CXR with evidence of heart failure with moderate pulmonary vascular congestion, bilateral pleural effusions, and bibasilar atelectasis. EKG was stable from prior with RBBB. He was given Lasix 20mg IV and started on supplemental oxygen. I was called for admission and requested the addition of a troponin and TSH, which was notable for an elevated troponin. Hospitalization problems: # Acute onset heart failure # Acute hypoxic respiratory failure # Elevated troponin/NSTEMI: Troponin peak at 0.16 and decreased on last check to 0.13. # Right bundle branch block: Chronic. # Hypernatremia: Na 146 on admit, down to 139 on repeat. # Hyperbilirubinemia: Bilirubin 1.2 on admit, up to 1.6 on repeat. # Anemia, normocytic: Hgb 12.5 on admit, which is around baseline from the last year. # Thrombocytosis: Plt 362 on admit. # Anxiety # Insomnia # Deconditioning New onset heart failure with hypoxia without prior cardiopulmonary disease. Prior work-up notable for a negative nuclear stress test on 12/20/16. Elevated troponin without focal EKG changes in setting of fluid overload consistent with type II CT. Telemetry with sinus rhythm and normal rate. He has clinically improved with diuresis and electrolytes and renal function have maintained. 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 Anxiety and insomina with acute on chronic worsening likely related to current hospitalization. - Cardiorespiratory monitoring, VS q4h, strict I/O, daily weight - Oxygen supplementation to keep saturations >90%; wean as tolerated - Lasix 20mg IV BID today - ASA 81mg daily - Atorvastatin 80mg daily during hospitalization; plan to decrease to 40mg at discharge - Plan to start beta rosita therapy tomorrow - Plan for outpatient echocardiogram and possible repeat ischemic work-up - Restart Abilify 5mg - Hydroxyzine 25mg q6h prn anxiety - Melatonin 3mg qHS - Consult physical therapy - AM CBC, CMP, and lipid panel Chronic, stable conditions: # GERD: Omeprazole. # Chronic pain: Duloxetine, tramadol (on opiate pain contract with [facility] ), Tylenol, chrondroitin/glucosamine. # Vitamin D deficiency: Vitamin D. # Recent cataract surgery: Eyedrops as ordered. Hospitalization details: # FEN: No IVF. Electrolytes normal; recheck tomorrow. Heart healthy diet. # PPX: Enoxaparin for DVT ppx. Melatonin for delirium ppx. # Code status: FULL. # Emergency contact: , who was updated at bedside on rounds. # Disposition: Admit to inpatient unit with telemetry for acute heart failure work-up and management. Anticipate at least 48hr hospitalization with discharge to home once clinically improved.
[2017-11-13] MEDS: Enoxaparin 40 MG/0.4 ML Syringe SUBCUT SCH (12:52)
[2017-11-13] MEDS: Nicotine 7 MG/24 Hr Patch TRDERM SCH (12:53)
[2017-11-13] MEDS ORDERED: Furosemide 40 MG/4 ML VIAL IVPUSH ONE (14:00)
[2017-11-13] MEDS: atorvaSTATin 40 MG Tab PO SCH (20:33)
[2017-11-13] MEDS: LATANOPROST 0.005% EYEBOTH SCH (20:59)
[2017-11-13] MEDS: Melatonin 3 MG Tab PO SCH (21:00)
[2017-11-14] MEDS: PREDNISOLONE ACETATE EYERT SCH ×4 (07:22→20:32)
[2017-11-14] MEDS: Omeprazole 20 MG Cap.CR PO SCH (07:22)
[2017-11-14] MEDS: GATIFLOXACIN 0.5% EYERT SCH ×4 (07:55→20:33)
[2017-11-14 08:05] LABS: CHLORIDE,CL 102 mmol/L (98-115); SODIUM,NA 143 mmol/L (136-145)
[2017-11-14] MEDS ORDERED: Metoprolol Succinate 25 MG Tab.ER PO SCH (09:00)
[2017-11-14] MEDS: Ascorbic Acid 500 MG Tab PO SCH (09:23)
[2017-11-14] MEDS: traMADol 50 MG Tab PO SCH ×3 (09:23→20:33)
[2017-11-14] MEDS: Magnesium Oxide 500 MG Tab PO SCH (09:23)
[2017-11-14] MEDS: Aspirin 81 MG Tab.EC PO SCH (09:23)
[2017-11-14] MEDS: Chondroitin/Glucosamine Cap PO SCH (09:23)
[2017-11-14] MEDS: ARIPiprazole 5 MG Tab PO SCH (09:24)
[2017-11-14] MEDS: Cholecalciferol (Vitamin D3) 1,000 Unit Tab PO SCH (09:24)
[2017-11-14] MEDS: Nicotine 7 MG/24 Hr Patch TRDERM SCH (09:24)
[2017-11-14] MEDS: Acetaminophen 500 MG Tab PO SCH ×3 (09:24→20:33)
[2017-11-14] MEDS: DULoxetine 30 MG Cap PO SCH (09:24)
[2017-11-14] MEDS: Multivitamins with Minerals/Iron/Folic Acid/Lycopene Tab PO SCH (09:25)
[2017-11-14] MEDS: Sodium Chloride 0.9% 5 ML Syringe FLUSH PRN (09:28)
[2017-11-14] MEDS ORDERED: Furosemide 40 MG/4 ML VIAL IVPUSH ONE (10:02)
--- NOTE | 2017-11-14 10:06 | PCM.PN ---
- General Info Date of Service: 11/14/17 Functional Status: Reports: Pain Controlled, Tolerating Diet. Denies: New Symptoms - Review of Systems HEENT: Reports: No Symptoms Pulmonary: Denies: Shortness of Breath, Cough, Sputum Cardiovascular: Denies: PND, Edema Gastrointestinal: Reports: No Symptoms Genitourinary: Reports: No Symptoms Musculoskeletal: Reports: Back Pain Skin: Reports: Dryness Neurological: Reports: No Symptoms Psychiatric: Reports: No Symptoms - Patient Data Vitals - Most Recent: Last Vital Signs Temp 98.7 F 11/14/17 07:00 Pulse 80 11/14/17 09:37 Resp 16 11/14/17 07:00 BP 96/62 11/14/17 09:37 Pulse Ox 92 L 11/14/17 09:33 Weight - Most Recent: 127 lb 1 oz I&O - Last 24 Hours: Intake & Output 11/13/17 11/14/17 11/14/17 22:59 06:59 14:59 Intake Total 540 100 Output Total 1700 800 Balance -1160 -700 Lab Results Last 24 Hours: Laboratory Results - last 24 hr 11/14/17 11/14/17 Range/Units 07:25 07:25 WBC 8.4 (5.0-10.0) 10^3/uL RBC 4.44 L (4.50-6.00) 10^6/uL Hgb 13.4 (13.0-17.0) g/dL Hct 40.8 (40.0-52.0) % MCV 91.8 (82.0-92.0) fL MCH 30.0 (27.0-31.0) pg MCHC 32.7 (32.0-36.0) g/dL RDW 13.0 (11.5-14.5) % Plt Count 367 H (150-300) 10^3/uL MPV 7.7 (7.4-10.4) fL Sodium 143 (136-145) mmol/L Potassium 4.4 (3.3-5.3) mmol/L Chloride 102 (98-115) mmol/L Carbon Dioxide 28.5 (21.0-32.0) mmol/L BUN 20 (6-25) mg/dL Creatinine 1.10 (0.51-1.17) mg/dL Est Cr Clr Drug Dosing 41.48 mL/min Estimated GFR (MDRD) > 60 mL/min Glucose 134 H (70-110) mg/dL Calcium 9.8 (8.7-10.3) mg/dL Total Bilirubin 0.9 (0.2-1.0) mg/dL AST 21 (15-37) U/L ALT 28 (12-78) U/L Alkaline Phosphatase 130 H (46-116) IU/L Total Protein 7.1 (6.4-8.2) g/dL Albumin 3.24 (3.00-4.80) g/dL Triglycerides 98 (30-150) mg/dL Cholesterol 113 (100-199) mg/dL LDL Cholesterol, Calc 51 (0-100) mg/dL HDL Cholesterol 42 (40-60) mg/dL Med Orders - Current: Current Medications Acetaminophen (Tylenol Extra Strength) 1,000 mg PO TID [facility] Last Admin: 11/14/17 09:24 Dose: 1,000 mg Aripiprazole (Abilify) 5 mg PO DAILY [facility] Last Admin: 11/14/17 09:24 Dose: 5 mg Ascorbic Acid (Vitamin C) 250 mg PO DAILY [facility] Last Admin: 11/14/17 09:23 Dose: 250 mg Aspirin (Halfprin) 81 mg PO DAILY [facility] Last Admin: 11/14/17 09:23 Dose: 81 mg Atorvastatin Calcium (Lipitor) 80 mg PO BEDTIME [facility] Last Admin: 11/13/17 20:33 Dose: 80 mg Cholecalciferol (Vitamin D3) 4,000 units PO DAILY [facility] Last Admin: 11/14/17 09:24 Dose: 4,000 units Duloxetine HCl (Cymbalta) 60 mg PO DAILY [facility] Last Admin: 11/14/17 09:24 Dose: 60 mg Enoxaparin Sodium (Lovenox) 40 mg SUBCUT Q24H [facility] Last Admin: 11/13/17 12:52 Dose: 40 mg Glucosamine/Chondroitin (Glucosamine-Chondroitin 500-400 Capsule) 1 cap PO DAILY [facility] Last Admin: 11/14/17 09:23 Dose: 1 cap Hydroxyzine HCl (Atarax) 25 mg PO Q6H PRN PRN Reason: Anxiety Last Admin: 11/13/17 17:54 Dose: 25 mg Magnesium Oxide (Magnesium Oxide) 500 mg PO DAILY [facility] Last Admin: 11/14/17 09:23 Dose: 500 mg Melatonin (Melatonin) 3 mg PO BEDTIME [facility] Last Admin: 11/13/17 21:00 Dose: 3 mg Metoprolol Succinate (Toprol Xl) 12.5 mg PO DAILY [facility] Last Admin: 11/14/17 09:37 Dose: Not Given Multivitamins/Minerals (Centrum) 1 tab PO DAILY [facility] Last Admin: 11/14/17 09:25 Dose: 1 tab Nicotine (Habitrol) 7 mg TRDERM DAILY [facility] Last Admin: 11/14/17 09:24 Dose: 7 mg Nitroglycerin (Nitrostat) 0.4 mg SL ONETIME PRN PRN Reason: Chest Pain Omeprazole (Omeprazole) 40 mg PO ACBREAKFAST [facility] Last Admin: 11/14/17 07:22 Dose: 40 mg Gatifloxacin [ Gatifloxacin] 0.5% 2 .5ml 1 each EYERT 0800,1200,1600,2000 [facility] Last Admin: 11/14/17 07:55 Dose: 1 each Latanoprost [ Latanoprost] 0.005% 2.5ml 1 each EYEBOTH BEDTIME [facility] Last Admin: 11/13/17 20:59 Dose: 1 each Prednisolone Acetate [Pred Forte 1% Ophth Susp] 1 each EYERT 0800,1200,1600, 2000 [facility] Last Admin: 11/14/17 07:22 Dose: 1 each Sodium Chloride (Syrex Flush) 5 ml FLUSH Q8HR PRN PRN Reason: Keep Vein Open Last Admin: 11/14/17 09:28 Dose: 5 ml Tramadol HCl (Ultram) 50 mg PO QAM [facility] Last Admin: 11/14/17 09:23 Dose: 50 mg Tramadol HCl (Ultram) 100 mg PO BEDTIME [facility] Last Admin: 11/13/17 21:00 Dose: 100 mg Tramadol HCl (Ultram) 100 mg PO 1200 [facility] Last Admin: 11/13/17 12:52 Dose: 100 mg Discontinued Medications Albuterol/Ipratropium (Duoneb 3.0-0.5 Mg/3 Ml) 3 ml NEB ONETIME ONE Stop: 11/12/17 16:13 Last Admin: 11/12/17 20:02 Dose: Not Given Aspirin (Aspirin) 324 mg PO ONETIME ONE Stop: 11/12/17 20:28 Last Admin: 11/12/17 20:51 Dose: 324 mg Atorvastatin Calcium (Lipitor) Confirm Administered Dose 80 mg .ROUTE .STK-MED ONE Stop: 11/12/17 20:47 Last Admin: 11/12/17 20:50 Dose: 80 mg Cholecalciferol (Vitamin D3) 5,000 units PO DAILY [facility] Last Admin: 11/13/17 09:35 Dose: Not Given Furosemide (Lasix) 20 mg IVPUSH NOW ONE Stop: 11/12/17 17:07 Last Admin: 11/12/17 18:58 Dose: 20 mg Furosemide (Lasix) 20 mg IVPUSH ONETIME [facility] Last Admin: 11/13/17 08:43 Dose: 20 mg Furosemide (Lasix) 20 mg IVPUSH 1400 ONE Stop: 11/13/17 14:01 Last Admin: 11/13/17 14:08 Dose: 20 mg Lorazepam (Ativan) 0.5 mg PO ONETIME ONE Stop: 11/12/17 22:46 Last Admin: 11/12/17 22:53 Dose: 0.5 mg Polysaccharide Iron Complex (Ferrex 150) 150 mg PO DAILY [facility] Last Admin: 11/13/17 09:01 Dose: Not Given Tramadol HCl (Ultram) 50 mg PO TID [facility] Last Admin: 11/13/17 08:41 Dose: 50 mg Tramadol HCl (Ultram) 100 mg PO DAILY [facility] - Exam Quality Assessment: No: Supplemental Oxygen General: Alert, Oriented Neck: Supple. No: No JVD Lungs: Rales (slight rales bases) Cardiovascular: Regular Rate, Regular Rhythm GI/Abdominal Exam: No: Distended (Male) Exam: Deferred, Other Back Exam: No: CVA Tenderness (L), CVA Tenderness (R) Extremities: No Pedal Edema. No: Pedal Edema Neurological: No New Focal Deficit Psy/Mental Status: Alert, Normal Affect, Normal Mood - Problem List Review Problem List Initiated/Reviewed/Updated: Yes - Plan Plan:: HPI Summary: 82yoM with no prior history of cardiopulmonary disease who was in his baseline state of health until the last 2-3 weeks when he has noticed increased shortness of breath. On the morning of admission, he noted dramatic worsening in his shortness of breath and felt like he was smothered and couldn' t take a deep breath. His brought him to the [facility] ED for evaluation. ED Course: He was noted to have borderline low oxygen, mildly elevated BP, and pulmonary exam with evidence of overload. Work-up was notable for unremarkable CBC and CMP, but with BNP 1660 and CXR with evidence of heart failure with moderate pulmonary vascular congestion, bilateral pleural effusions, and bibasilar atelectasis. EKG was stable from prior with RBBB. He was given Lasix 20mg IV and started on supplemental oxygen. I was called for admission and requested the addition of a troponin and TSH, which was notable for an elevated troponin. Hospitalization problems: # Acute onset heart failure # Acute hypoxic respiratory failure # Elevated troponin/NSTEMI: Troponin peak at 0.16 and decreased on last check to 0.13. # Right bundle branch block: Chronic. # Hypernatremia: Na 146 on admit, down to 143 now. # Hyperbilirubinemia: Bilirubin 1.2 on admit, up to 1.6 on repeat, now 0.9 # Anemia, normocytic: Hgb 12.5 on admit, Now normal, completed Iron, d/c vitamin C # Thrombocytosis: reactive. # Anxiety, reinstituted Ability # Insomnia # Deconditioning #Tobacco depend. Replacement New onset heart failure with hypoxia without prior cardiopulmonary disease. Prior work-up notable for a negative nuclear stress test on 12/20/16. Elevated troponin without focal EKG changes in setting of fluid overload consistent with type II PR. Telemetry with sinus rhythm and normal rate however last night tele strips with transient sinus arrythmia. He has clinically improved with diuresis and electrolytes and renal function have maintained. 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 Anxiety and insomina with acute on chronic worsening likely related to current hospitalization. - Cardiorespiratory monitoring, VS q4h, strict I/O, daily weight - Oxygen supplementation to keep saturations >90%; wean as tolerated - Lasix 20mg IV ONCE today - ASA 81mg daily - Atorvastatin 80mg daily during hospitalization; plan to decrease to 40mg at discharge - Plan to start beta rosita therapy tomorrow - Plan for outpatient echocardiogram and possible repeat ischemic work-up - Restarted Abilify 5mg - Hydroxyzine 25mg q6h prn anxiety - Melatonin 3mg qHS - Consult physical therapy - AM CBC, CMP, Chronic, stable conditions: # GERD: Omeprazole. # Chronic pain: Duloxetine, tramadol (on opiate pain contract with [facility] ), Tylenol, chrondroitin/glucosamine. # Vitamin D deficiency: Vitamin D. # Recent cataract surgery: Eyedrops as ordered. Will postpone upcoming surgery for 3 months since PR. Hospitalization details: # FEN: No IVF. Electrolytes normal; recheck tomorrow. Heart healthy diet. # PPX: Enoxaparin for DVT ppx. Melatonin for delirium ppx. # Code status: FULL. # Emergency contact: , who was updated at bedside on rounds. # Disposition: Admit to inpatient unit with telemetry for acute heart failure work-up and management. Anticipate at least 48hr hospitalization with discharge to home once clinically improved. disposition, Remain acute, reduce lasix, Outpatient ECHO, Low NA diet, Add low dose ACEI due to HF--titrate to max tolerable levels--(goal 30mg) Postpone upcoming cateract surgery. Remain on Tele.
[2017-11-14] MEDS ORDERED: Atropine 0.1 MG/ML 10 ML Syringe IVPUSH PRN (10:29)
[2017-11-14] MEDS ORDERED: Lidocaine 2% 100 MG/5 ML Syringe IVPUSH PRN (10:29)
[2017-11-14] MEDS ORDERED: EPINEPHrine 1:10,000 1 MG/10 ML Syringe IVPUSH PRN (10:29)
[2017-11-14] MEDS: Lisinopril 5 MG Tab PO SCH (10:41)
[2017-11-14] MEDS: Enoxaparin 40 MG/0.4 ML Syringe SUBCUT SCH (11:48)
[2017-11-14] MEDS: hydrOXYzine HCl 25 MG Tab PO PRN (11:49)
[2017-11-14] MEDS ORDERED: traMADol 50 MG Tab PO SCH (12:00)
[2017-11-14] MEDS: Melatonin 3 MG Tab PO SCH (20:33)
[2017-11-14] MEDS: atorvaSTATin 40 MG Tab PO SCH (20:34)
[2017-11-14] MEDS: LATANOPROST 0.005% EYEBOTH SCH (20:54)
[2017-11-15 06:11] VITALS: BP 115/78
[2017-11-15] MEDS: Omeprazole 20 MG Cap.CR PO SCH (07:27)
[2017-11-15] MEDS: GATIFLOXACIN 0.5% EYERT SCH ×2 (07:28→13:35)
[2017-11-15] MEDS: PREDNISOLONE ACETATE EYERT SCH ×2 (07:34→13:36)
[2017-11-15 07:48] LABS: CHLORIDE,CL 100 mmol/L (98-115); SODIUM,NA 139 mmol/L (136-145)
[2017-11-15] MEDS: Multivitamins with Minerals/Iron/Folic Acid/Lycopene Tab PO SCH (08:28)
[2017-11-15] MEDS: Chondroitin/Glucosamine Cap PO SCH (08:28)
[2017-11-15] MEDS: ARIPiprazole 5 MG Tab PO SCH (08:28)
[2017-11-15] MEDS: Aspirin 81 MG Tab.EC PO SCH (08:29)
[2017-11-15] MEDS: Magnesium Oxide 500 MG Tab PO SCH (08:29)
[2017-11-15] MEDS: DULoxetine 30 MG Cap PO SCH (08:30)
[2017-11-15] MEDS: Acetaminophen 500 MG Tab PO SCH (08:31)
[2017-11-15] MEDS: Cholecalciferol (Vitamin D3) 1,000 Unit Tab PO SCH (08:33)
[2017-11-15] MEDS: Lisinopril 5 MG Tab PO SCH (08:35)
[2017-11-15] MEDS: Nicotine 7 MG/24 Hr Patch TRDERM SCH (08:36)
[2017-11-15] MEDS: traMADol 50 MG Tab PO SCH ×2 (09:37→13:36)
--- NOTE | 2017-11-15 10:23 | PCM.DCSUM1 ---
Discharge Summary - Discharge Data Discharge Date: 11/15/17 Discharge Disposition: Home, Self-Care 01 Condition: Fair - Patient Summary/Data Consults: Consultations 11/13/17 09:42 Consult to Physical Therapy [PT Evaluation and Treatment] [CONS] Routine - Patient Instructions Diet: Heart Healthy Diet, Low Sodium (1800 mg salt per day. No added salt. ) Activity: As Tolerated Driving: May Drive Today Showering/Bathing: May Shower Other/Special Instructions: weigh yourself daily in the morning dry weight. Bring weight log to clinic on your appointment. Report any weight gain more than 3 pounds. we'll go over your echocardiogram results at your follow-up appointment - Discharge Plan Prescriptions/Med Rec: ALPRAZolam [Xanax] 0.25 mg PO Q8HR PRN #30 tablet PRN Reason: Anxiety Furosemide [Lasix] 20 mg PO DAILY #60 tablet Lisinopril [Prinivil] 2.5 mg PO DAILY #30 tablet Home Medications: Home Meds Acetaminophen [Tylenol Extra Strength] 1,000 mg PO TID 03/16/14 [History] DULoxetine [Cymbalta] 60 mg PO DAILY 03/16/14 [History] Multivitamin [Multi-Vitamin Daily] 1 tab PO DAILY 03/16/14 [History] Omeprazole 60 mg PO DAILY 03/16/14 [History] traMADol [Ultram] 50 mg PO TID 03/16/14 [History] Aspirin [Halfprin] 81 mg PO DAILY 10/30/17 [History] Cholecalciferol (Vitamin D3) [Vitamin D3] 5,000 unit PO DAILY 10/30/17 [History] Gluc HCl/Csa/Tran Hy/Hyalur Ac [Glucosamine Chondroitin] 1 each PO DAILY [History] Magnesium Oxide 400 mg PO DAILY 10/30/17 [History] Gatifloxacin 1 drop EYERT QID 11/12/17 [History] Latanoprost 1 drop EYEBOTH BEDTIME 11/12/17 [History] prednisoLONE Acetate [Pred Forte 1% Ophth Susp] 1 drop EYERT QID 11/12/17 [ History] ALPRAZolam [Xanax] 0.25 mg PO Q8HR PRN #30 tablet 11/15/17 [Rx] Furosemide [Lasix] 20 mg PO DAILY #60 tablet 11/15/17 [Rx] Lisinopril [Prinivil] 2.5 mg PO DAILY #30 tablet 11/15/17 [Rx] Referrals: Manolo Roche, [employer] [Primary Care Provider] - (next week any time however after echo report returns) - Discharge Summary/Plan Comment DC Time >30 min.: Yes Discharge Summary/Plan Comment: final diagnosis Acute onset heart failure Acute hypoxic respiratory failure Elevated troponin/NSTEMI: Right bundle branch block: Chronic. Hypernatremia: Hyperbilirubinemia: Anemia, normocytic: Thrombocytosis: reactive. Anxiety, Insomnia Deconditioning Tobacco depend. hospital course his hospital course went well, he continued to diuresis receiving a dry weight of 127 pounds. Start on low-dose ISIDORO inhibitor, tobacco replacement therapy was started,New onset heart failure with hypoxia without prior cardiopulmonary disease. Prior work-up notable for a negative nuclear stress test on 12/20/16. Elevated troponin without focal EKG changes in setting of fluid overload consistent with type II [place]. he remained on telemetry and at one point he did have a transient sinus arrythmia. He had clinically improved with diuresis and electrolytes and renal function have maintained. 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 Anxiety and insomina with acute on chronic worsening likely related to current hospitalization.he was started back on beta rosita and Abilify due to anxiety. Recent cataract surgery: Eyedrops as ordered. Will postpone upcoming surgery for 3 months since WI. he will be scheduled for echocardiogram and follow up with the clinic with those results. Medications include ISIDORO inhibitor, beta rosita, Xanax. Discontinued iron and vitamin C - Patient Data Vitals - Most Recent: Last Vital Signs Temp 96.8 F 11/15/17 06:10 Pulse 80 11/15/17 10:00 Resp 20 11/15/17 06:10 BP 115/78 11/15/17 08:35 Pulse Ox 94 L 11/15/17 09:00 Weight - Most Recent: 127 lb 1 oz I&O - Last 24 hours: Intake & Output 11/14/17 11/15/17 11/15/17 22:59 06:59 14:59 Intake Total 100 50 Output Total 700 700 Balance -600 -650 Lab Results - Last 24 hrs: Laboratory Results - last 24 hr 04/18/18 Range/Units 07:10 Sodium 139 (136-145) mmol/L Potassium 4.4 (3.3-5.3) mmol/L Chloride 100 (98-115) mmol/L Carbon Dioxide 29.4 (21.0-32.0) mmol/L BUN 21 (6-25) mg/dL Creatinine 1.16 (0.51-1.17) mg/dL Est Cr Clr Drug Dosing 40.21 mL/min Estimated GFR (MDRD) > 60 mL/min Glucose 106 (70-110) mg/dL Calcium 9.7 (8.7-10.3) mg/dL B-Natriuretic Peptide 891 H (0-100) pg/mL Med Orders - Current: Current Medications Acetaminophen (Tylenol Extra Strength) 1,000 mg PO TID [facility] Last Admin: 11/15/17 08:31 Dose: 1,000 mg Aripiprazole (Abilify) 5 mg PO DAILY [facility] Last Admin: 11/15/17 08:28 Dose: 5 mg Aspirin (Halfprin) 81 mg PO DAILY [facility] Last Admin: 11/15/17 08:29 Dose: 81 mg Atorvastatin Calcium (Lipitor) 80 mg PO BEDTIME [facility] Last Admin: 11/14/17 20:34 Dose: 80 mg Atropine Sulfate (Atropine 0.1 Mg/Ml) 0 mg IVPUSH ASDIRECTED PRN PRN Reason: Heart Cholecalciferol (Vitamin D3) 4,000 units PO DAILY [facility] Last Admin: 11/15/17 08:33 Dose: 4,000 units Duloxetine HCl (Cymbalta) 60 mg PO DAILY [facility] Last Admin: 11/15/17 08:30 Dose: 60 mg Enoxaparin Sodium (Lovenox) 40 mg SUBCUT Q24H [facility] Last Admin: 11/14/17 11:48 Dose: 40 mg Epinephrine HCl (Epinephrine 1:10,000) 1 mg IVPUSH ASDIRECTED PRN PRN Reason: Heart Glucosamine/Chondroitin (Glucosamine-Chondroitin 500-400 Capsule) 1 cap PO DAILY [facility] Last Admin: 11/15/17 08:28 Dose: 1 cap Hydroxyzine HCl (Atarax) 25 mg PO Q6H PRN PRN Reason: Anxiety Last Admin: 11/14/17 11:49 Dose: 25 mg Lidocaine HCl (Xylocaine 2%) 0 mg IVPUSH ASDIRECTED PRN PRN Reason: Heart Lisinopril (Prinivil) 2.5 mg PO DAILY [facility] Last Admin: 11/15/17 08:35 Dose: 2.5 mg Magnesium Oxide (Magnesium Oxide) 500 mg PO DAILY [facility] Last Admin: 11/15/17 08:29 Dose: 500 mg Melatonin (Melatonin) 3 mg PO BEDTIME [facility] Last Admin: 11/14/17 20:33 Dose: 3 mg Metoprolol Succinate (Toprol Xl) 12.5 mg PO DAILY [facility] Last Admin: 11/14/17 09:37 Dose: Not Given Multivitamins/Minerals (Centrum) 1 tab PO DAILY [facility] Last Admin: 11/15/17 08:28 Dose: 1 tab Nicotine (Habitrol) 7 mg TRDERM DAILY [facility] Last Admin: 11/15/17 08:36 Dose: 7 mg Nitroglycerin (Nitrostat) 0.4 mg SL ONETIME PRN PRN Reason: Chest Pain Omeprazole (Omeprazole) 40 mg PO ACBREAKFAST [facility] Last Admin: 11/15/17 07:27 Dose: 40 mg Gatifloxacin [ Gatifloxacin] 0.5% 2 .5ml 1 each EYERT 0800,1200,1600,2000 [facility] Last Admin: 11/15/17 07:28 Dose: 1 each Latanoprost [ Latanoprost] 0.005% 2.5ml 1 each EYEBOTH BEDTIME [facility] Last Admin: 11/14/17 20:54 Dose: 1 each Prednisolone Acetate [Pred Forte 1% Ophth Susp] 1 each EYERT 0800,1200,1600, 2000 [facility] Last Admin: 11/15/17 07:34 Dose: 1 each Sodium Chloride (Syrex Flush) 5 ml FLUSH Q8HR PRN PRN Reason: Keep Vein Open Last Admin: 11/14/17 09:28 Dose: 5 ml Tramadol HCl (Ultram) 50 mg PO QAM [facility] Last Admin: 11/15/17 09:37 Dose: 50 mg Tramadol HCl (Ultram) 100 mg PO BEDTIME [facility] Last Admin: 11/14/17 20:33 Dose: 100 mg Tramadol HCl (Ultram) 100 mg PO 1200 [facility] Last Admin: 11/14/17 11:48 Dose: 100 mg Discontinued Medications Albuterol/Ipratropium (Duoneb 3.0-0.5 Mg/3 Ml) 3 ml NEB ONETIME ONE Stop: 04/15/18 16:13 Last Admin: 11/12/17 20:02 Dose: Not Given Ascorbic Acid (Vitamin C) 250 mg PO DAILY [facility] Last Admin: 11/14/17 09:23 Dose: 250 mg Aspirin (Aspirin) 324 mg PO ONETIME ONE Stop: 11/12/17 20:28 Last Admin: 11/12/17 20:51 Dose: 324 mg Atorvastatin Calcium (Lipitor) Confirm Administered Dose 80 mg .ROUTE .STK-MED ONE Stop: 11/12/17 20:47 Last Admin: 11/12/17 20:50 Dose: 80 mg Cholecalciferol (Vitamin D3) 5,000 units PO DAILY [facility] Last Admin: 11/13/17 09:35 Dose: Not Given Furosemide (Lasix) 20 mg IVPUSH NOW ONE Stop: 11/12/17 17:07 Last Admin: 11/12/17 18:58 Dose: 20 mg Furosemide (Lasix) 20 mg IVPUSH ONETIME [facility] Last Admin: 11/13/17 08:43 Dose: 20 mg Furosemide (Lasix) 20 mg IVPUSH 1400 ONE Stop: 11/13/17 14:01 Last Admin: 11/13/17 14:08 Dose: 20 mg Furosemide (Lasix) 20 mg IVPUSH NOW ONE Stop: 11/14/17 10:03 Last Admin: 11/14/17 10:41 Dose: 20 mg Lorazepam (Ativan) 0.5 mg PO ONETIME ONE Stop: 11/12/17 22:46 Last Admin: 11/12/17 22:53 Dose: 0.5 mg Polysaccharide Iron Complex (Ferrex 150) 150 mg PO DAILY [facility] Last Admin: 11/13/17 09:01 Dose: Not Given Tramadol HCl (Ultram) 50 mg PO TID [facility] Last Admin: 11/13/17 08:41 Dose: 50 mg Tramadol HCl (Ultram) 100 mg PO DAILY [facility]
[2017-11-15] MEDS: Enoxaparin 40 MG/0.4 ML Syringe SUBCUT SCH (13:35)
== END 2017-11-15 11:10 | disposition home or self-care (01) | DRG 280 ==
LOC: KA.ED 15:30 → KA.MS 17:17
PROVIDERS: ADMIT Physician Assistant Surgical; ATTEND Family Medicine
DX: I50.9 Heart failure, unspecified (principal); J96.01 Acute respiratory failure with hypoxia; F32.9 Major depressive disorder, single episode, unspecified; I21.4 Non-ST elevation (NSTEMI) myocardial infarction; E87.0 Hyperosmolality and hypernatremia; I45.10 Unspecified right bundle-branch block; E80.6 Other disorders of bilirubin metabolism; D64.9 Anemia, unspecified; D47.3 Essential (hemorrhagic) thrombocythemia; G47.00 Insomnia, unspecified; R53.1 Weakness; I10 Essential (primary) hypertension; F41.8 Other specified anxiety disorders; E80.4 Gilbert syndrome; K21.9 Gastro-esophageal reflux disease without esophagitis; G89.29 Other chronic pain; E55.9 Vitamin D deficiency, unspecified; F17.200 Nicotine dependence, unspecified, uncomplicated; Z88.0 Allergy status to penicillin; Z79.899 Other long term (current) drug therapy; Z79.82 Long term (current) use of aspirin; Z85.828 Personal history of other malignant neoplasm of skin
CPT/HCPCS: 36415; 71046; 80048; 80053; 80061; 83880; 84443; 84484; 85025; 85027; 93005; 97162-GP; 99284; 99285; A9270-GY; J1650; J1940

== ENCOUNTER 2017-12-04 08:33 | Emergency (ER) | payer MEDICARE, OTHER ==
[2017-12-04 08:47] VITALS: BP 93/62
[2017-12-04] MEDS ORDERED: Sodium Chloride 0.9% 5 ML Syringe FLUSH PRN (08:58)
--- NOTE | 2017-12-04 09:22 | EDM.PDOC ---
ED HPI GENERAL MEDICAL PROBLEM - General Chief Complaint: General Stated Complaint: PAIN;WEAKNESS Time Seen by Provider: 12/04/17 09:13 Source of Information: Reports: Patient ( ), Family, Provider (Discussed case with Manolo Roche) History Limitations: Reports: No Limitations - History of Present Illness INITIAL COMMENTS - FREE TEXT/NARRATIVE: Patient is an 82-year-old gentleman who presents to the emergency department this morning from the [facility] with a complaint of overall body aches and right ankle pain. Discussed case with Manolo Roche, nurse practitioner, who said patient has been complaining of increasing weakness and pain. Patient has been unable to ambulate for several days and states that he has not been eating or drinking appropriately. Patient denies chest pain, shortness of breath, headache, nausea, vomiting, diarrhea, urinary retention, abdominal pain , or fever. Onset: Gradual Duration: Chronic Location: Reports: Lower Extremity, Right Quality: Reports: Ache Severity: Mild Improves with: Reports: None Worsens with: Reports: Movement Associated Symptoms: Reports: Malaise, Other (Overall body and joint aches) Generalized Pain Score (Numeric/FACES): 10 - Related Data Allergies Allergy/AdvReac Type Severity Reaction Status Date / Time Penicillins Allergy Hives Verified 12/04/17 08:47 BEE STINGS Allergy UNKNOWN Uncoded 12/04/17 08:47 Home Meds: Home Meds Acetaminophen [Tylenol Extra Strength] 1,000 mg PO TID 03/16/14 [History] DULoxetine [Cymbalta] 60 mg PO DAILY 03/16/14 [History] Multivitamin [Multi-Vitamin Daily] 1 tab PO DAILY 03/16/14 [History] Omeprazole 60 mg PO DAILY 03/16/14 [History] traMADol [Ultram] 50 mg PO TID 03/16/14 [History] Aspirin [Halfprin] 81 mg PO DAILY 10/30/17 [History] Gluc HCl/Csa/Tran Hy/Hyalur Ac [Glucosamine Chondroitin] 1 each PO DAILY [History] Magnesium Oxide 400 mg PO DAILY 10/30/17 [History] Latanoprost 1 drop EYEBOTH BEDTIME 11/12/17 [History] ALPRAZolam [Xanax] 0.25 mg PO Q8HR PRN #30 tablet 11/15/17 [Rx] Metoprolol Succinate [Toprol XL] 12.5 mg PO DAILY #60 tab.er 11/15/17 [Rx] ARIPiprazole [Abilify] 5 mg PO DAILY 12/04/17 [History] Cholecalciferol (Vitamin D3) [Thera-D] 4,000 unit PO DAILY 12/04/17 [History] Lisinopril [Prinivil] 2.5 mg PO DAILY@1200 12/04/17 [History] Tamsulosin [Flomax] 0.4 mg PO BEDTIME 12/04/17 [History] traMADol [Ultram] 100 mg PO BID@1200,2100 12/04/17 [History] Past Medical History HEENT History: Reports: Cataract, Impaired Vision Cardiovascular History: Reports: Hypertension Other Gastrointestinal History: esophageal ulcers Genitourinary History: Reports: BPH Musculoskeletal History: Reports: Arthritis, Back Pain, Chronic, Osteoarthritis , Osteoporosis, RA Other Musculoskeletal History: chronic ankle pain Psychiatric History: Reports: Depression Hematologic History: Reports: Anemia, Blood Transfusion(s) Oncologic (Cancer) History: Reports: Basal Cell Carcinoma, Squamous Cell Carcinoma Other Oncologic History: neoplasm of uncertain behavior of stomach, intestines and rectum - Infectious Disease History Infectious Disease History: Reports: Chicken Pox, Measles, Mumps - Past Surgical History HEENT Surgical History: Reports: Cataract Surgery, Oral Surgery, Tonsillectomy Cardiovascular Surgical History: Reports: None GI Surgical History: Reports: Colonoscopy Musculoskeletal Surgical History: Reports: Hip Replacement Oncologic Surgical History: Reports: Biopsy of Breast Social & Family History - Tobacco Use Smoking Status *Q: Current Some Day Smoker Years of Tobacco use: 40 Packs/Tins Daily: 1 Used Tobacco, but Quit: No Second Hand Smoke Exposure: No - Caffeine Use Caffeine Use: Reports: Soda Other Caffeine Use: regular - Alcohol Use Days Per Week of Alcohol Use: 3 Number of Drinks Per Day: 1 Total Drinks Per Week: 3 - Recreational Drug Use Recreational Drug Use: No ED ROS GENERAL - Review of Systems Review Of Systems: ROS reveals no pertinent complaints other than HPI. Constitutional: Reports: Malaise, Weakness, Weight Loss HEENT: Reports: No Symptoms Respiratory: Reports: No Symptoms Cardiovascular: Reports: No Symptoms Endocrine: Reports: No Symptoms GI/Abdominal: Reports: No Symptoms : Reports: No Symptoms Musculoskeletal: Reports: Neck Pain, Leg Pain, Joint Pain, Muscle Pain Skin: Reports: No Symptoms Neurological: Reports: No Symptoms Psychiatric: Reports: No Symptoms Hematologic/Lymphatic: Reports: No Symptoms Immunologic: Reports: No Symptoms ED EXAM, GENERAL - Physical Exam Exam: See Below Exam Limited By: No Limitations General Appearance: Alert, WD/WN, No Apparent Distress Eye Exam: Bilateral Eye: Normal Inspection Nose: Normal Inspection, Normal Mucosa, No Blood Throat/Mouth: Normal Inspection, Normal Oropharynx, No Airway Compromise Head: Atraumatic, Normocephalic Neck: Normal Inspection, Supple, Tender Lateral (With range of motion). No: Lymphadenopathy (L), Lymphadenopathy (R) Respiratory/Chest: No Respiratory Distress, Lungs Clear, Normal Breath Sounds, No Accessory Muscle Use, Chest Non-Tender Cardiovascular: Regular Rate, Rhythm GI/Abdominal: Normal Bowel Sounds, Soft, Non-Tender, No Distention Back Exam: Normal Inspection. No: CVA Tenderness (L), CVA Tenderness (R) Extremities: Pedal Edema (2+ right foot. No proximal right lower extremity or left lower extremity involvement.) Neurological: Alert, Oriented, Normal Cognition Psychiatric: Normal Affect, Normal Mood Skin Exam: Warm, Dry, Intact, Normal Color, No Rash Lymphatic: No Adenopathy Course - Vital Signs Last Recorded V/S: Last Vital Signs Temp 98.3 F 12/04/17 08:43 Pulse 85 12/04/17 08:43 Resp 16 12/04/17 08:43 BP 93/62 12/04/17 08:43 Pulse Ox 96 12/04/17 08:43 - Orders/Labs/Meds Orders: Active Orders 24 hr Category Date Time Status Peripheral IV Care [RC] . DIRECTED Care 12/04/17 08:59 Active B-TYPE NATRIURETIC PEPTIDE,BNP [CHEM] Stat Lab 12/04/17 08:55 Received COMPREHENSIVE METABOLIC PN,CMP [CHEM] Stat Lab 12/04/17 08:55 Received UA W/MICROSCOPIC [URIN] Stat Lab 12/04/17 08:58 Ordered Sodium Chloride 0.9% [Syrex Flush] Med 12/04/17 08:58 Active 5 ml FLUSH Q8HR PRN Peripheral IV Insertion Adult [OM.PC] Routine Oth 12/04/17 08:58 Ordered Medication Orders Sodium Chloride (Syrex Flush) 5 ml FLUSH Q8HR PRN PRN Reason: Keep Vein Open Labs: Laboratory Tests 12/04/17 Range/Units 08:55 WBC 11.1 H (5.0-10.0) 10^3/uL RBC 3.98 L (4.50-6.00) 10^6/uL Hgb 11.9 L D (13.0-17.0) g/dL Hct 36.2 L (40.0-52.0) % MCV 90.9 (82.0-92.0) fL MCH 30.0 (27.0-31.0) pg MCHC 33.0 (32.0-36.0) g/dL RDW 12.4 (11.5-14.5) % Plt Count 419 H (150-300) 10^3/uL MPV 6.8 L (7.4-10.4) fL Neut % (Auto) 78.7 H (50.0-70.0) % Lymph % (Auto) 7.4 L (20.0-40.0) % [place] % (Auto) 8.9 H (2.0-8.0) % Eos % (Auto) 2.6 (1.0-3.0) % Baso % (Auto) 2.4 H (0.0-1.0) % Neut # (Auto) 8.7 H (2.5-7.0) 10^3/uL Lymph # (Auto) 0.8 L (1.0-4.0) 10^3/uL [place] # (Auto) 1.0 H (0.1-0.8) 10^3/uL Eos # (Auto) 0.3 (0.1-0.3) 10^3/uL Baso # (Auto) 0.3 H (0.0-0.1) 10^3/uL Meds: Medications Generic Name Dose Route Start Last Admin Trade Name Freq PRN Reason Stop Dose Admin Sodium Chloride 5 ml 12/04/17 08:58 Syrex Flush FLUSH Q8HR PRN Keep Vein Open - Radiology Interpretation Free Text/Narrative:: Right ankle x-ray shows degenerative changes without fracture or dislocation. - Re-Assessments/Exams Free Text/Narrative Re-Assessment/Exam: 12/04/17 10:17 Patient afebrile, nontoxic appearing, vital signs stable. Discussed case with Karli Kahn from [facility] and patient will be admitted [facility] bed. Departure - Departure Time of Disposition: 10:18 Disposition: DC/Tfer W/I Hosp To Swing 61 Condition: Fair Clinical Impression: Weakness generalized Congestive heart failure Qualifiers: Heart failure type: unspecified Heart failure chronicity: acute Qualified Code( s): I50.9 - Heart failure, unspecified - Discharge Information Referrals: Manolo Roche [employer] [Primary Care Provider] - - My Orders Last 24 Hours: My Active Orders 12/04/17 08:55 B-TYPE NATRIURETIC PEPTIDE,BNP [CHEM] Stat COMPREHENSIVE METABOLIC PN,CMP [CHEM] Stat 12/04/17 08:58 UA W/MICROSCOPIC [URIN] Stat Sodium Chloride 0.9% [Syrex Flush] 5 ml FLUSH Q8HR PRN Peripheral IV Insertion Adult [OM.PC] Routine 12/04/17 08:59 Peripheral IV Care [RC] . DIRECTED - Assessment/Plan Last 24 Hours: My Active Orders 12/04/17 08:55 B-TYPE NATRIURETIC PEPTIDE,BNP [CHEM] Stat COMPREHENSIVE METABOLIC PN,CMP [CHEM] Stat 12/04/17 08:58 UA W/MICROSCOPIC [URIN] Stat Sodium Chloride 0.9% [Syrex Flush] 5 ml FLUSH Q8HR PRN Peripheral IV Insertion Adult [OM.PC] Routine 12/04/17 08:59 Peripheral IV Care [RC] . DIRECTED Assessment:: Congestive heart failure, weakness Plan: Admit to [facility]
== END 2017-12-04 10:26 | disposition swing bed (61) ==
LOC: KA.ED 08:33
DX: I11.0 Hypertensive heart disease with heart failure (principal); I50.9 Heart failure, unspecified; R53.1 Weakness; D64.9 Anemia, unspecified; F17.210 Nicotine dependence, cigarettes, uncomplicated; Z88.0 Allergy status to penicillin; Z79.82 Long term (current) use of aspirin; Z79.899 Other long term (current) drug therapy; Z91.030 Bee allergy status
CPT/HCPCS: 36415; 73600-RT; 80053; 83880; 85025; 99285

== ENCOUNTER 2017-12-04 10:26 | Inpatient (IN) | payer MEDICARE, OTHER ==
[2017-12-04] MEDS: Polyethylene Glycol 3350 Powder 17 GM Packet PO SCH (12:13)
[2017-12-04] MEDS ORDERED: ALPRAZolam 0.25 MG Tab PO PRN (12:23)
[2017-12-04] MEDS ORDERED: Furosemide 40 MG/4 ML VIAL IVPUSH ONE (12:45)
[2017-12-04] MEDS: traMADol 50 MG Tab PO SCH ×2 (12:47→21:00)
[2017-12-04] MEDS: Lisinopril 5 MG Tab PO SCH (12:49)
--- NOTE | 2017-12-04 13:00 | PCM.HP ---
H&P History of Present Illness - General Date of Service: 12/04/17 Admit Problem/Dx: Admission Diagnosis/Problem Admission Diagnosis/Problem Weakness Source of Information: Patient, Family, Old Records, Provider, RN History Limitations: Reports: No Limitations - Related Data Allergies/Adverse Reactions: Allergies Allergy/AdvReac Type Severity Reaction Status Date / Time Penicillins Allergy Hives Verified 12/04/17 08:47 BEE STINGS Allergy Severe Anaphylactic Uncoded 12/04/17 11:02 Shock Home Medications: Home Meds Acetaminophen [Tylenol Extra Strength] 1,000 mg PO TID 03/16/14 [History] DULoxetine [Cymbalta] 60 mg PO BEDTIME 03/16/14 [History] Multivitamin [Multi-Vitamin Daily] 1 tab PO DAILY 03/16/14 [History] Omeprazole 60 mg PO DAILY 03/16/14 [History] traMADol [Ultram] 50 mg PO DAILY 03/16/14 [History] Aspirin [Halfprin] 81 mg PO DAILY 10/30/17 [History] Gluc HCl/Csa/Tran Hy/Hyalur Ac [Glucosamine Chondroitin] 1 each PO BID 10/30/17 [History] Magnesium Oxide 400 mg PO DAILY 10/30/17 [History] Latanoprost 1 drop EYEBOTH BEDTIME 11/12/17 [History] ALPRAZolam [Xanax] 0.25 mg PO Q8HR PRN #30 tablet 11/15/17 [Rx] Metoprolol Succinate [Toprol XL] 12.5 mg PO DAILY #60 tab.er 11/15/17 [Rx] ARIPiprazole [Abilify] 5 mg PO DAILY 12/04/17 [History] Cholecalciferol (Vitamin D3) [Thera-D] 4,000 unit PO DAILY 12/04/17 [History] Lisinopril [Prinivil] 2.5 mg PO DAILY@1200 12/04/17 [History] Tamsulosin [Flomax] 0.4 mg PO BEDTIME 12/04/17 [History] traMADol [Ultram] 100 mg PO BID@1200,2100 12/04/17 [History] Past Medical History HEENT History: Reports: Cataract, Impaired Vision Cardiovascular History: Reports: Heart Failure, Hypertension Gastrointestinal History: Reports: Other (See Below) Other Gastrointestinal History: esophageal ulcers,abdominal hernia Genitourinary History: Reports: BPH Musculoskeletal History: Reports: Arthritis, Back Pain, Chronic, Osteoarthritis , Osteoporosis Other Musculoskeletal History: chronic ankle pain Psychiatric History: Reports: Anxiety, Depression Hematologic History: Reports: Anemia, Blood Transfusion(s) Oncologic (Cancer) History: Reports: Basal Cell Carcinoma, Squamous Cell Carcinoma Other Oncologic History: neoplasm of uncertain behavior of stomach, intestines and rectum - Infectious Disease History Infectious Disease History: Reports: Chicken Pox, Measles, Mumps - Past Surgical History Head Surgeries/Procedures: Reports: None HEENT Surgical History: Reports: Cataract Surgery, Oral Surgery, Tonsillectomy Cardiovascular Surgical History: Reports: None GI Surgical History: Reports: Colonoscopy, Other (See Below) Other GI Surgeries/Procedures: abdominal surgery to reconnect stomach and 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 Male Surgical History: Reports: None Musculoskeletal Surgical History: Reports: Hip Replacement Oncologic Surgical History: Reports: None Dermatological Surgical History: Reports: None Social & Family History - Family History Cardiac: Reports: High Cholesterol, Hypertension Musculoskeletal: Reports: Arthritis - Tobacco Use Smoking Status *Q: Current Some Day Smoker Years of Tobacco use: 40 Packs/Tins Daily: 1 Used Tobacco, but Quit: No Second Hand Smoke Exposure: No - Caffeine Use Caffeine Use: Reports: Soda Other Caffeine Use: regular - Alcohol Use Days Per Week of Alcohol Use: 3 Number of Drinks Per Day: 1 Total Drinks Per Week: 3 - Recreational Drug Use Recreational Drug Use: No H&P Review of Systems - Review of Systems: Review Of Systems: See Below General: Reports: Malaise, Weakness, Fatigue, Decreased Appetite. Denies: Fever , Chills HEENT: Denies: Ear Pain, Headaches, Sinus Congestion, Sore Throat Pulmonary: Reports: Shortness of Breath. Denies: Cough Cardiovascular: Reports: Dyspnea on Exertion, Edema. Denies: Chest Pain, Lightheadedness Gastrointestinal: Reports: Abdominal Pain, Constipation, Decreased Appetite. Denies: Diarrhea, Nausea, Vomiting Genitourinary: Reports: No Symptoms Musculoskeletal: Reports: Joint Pain (left ankle pain) Psychiatric: Reports: No Symptoms Neurological: Denies: Dizziness, Headache Exam - Exam Exam: See Below - Vital Signs Vital Signs: Last Vital Signs Temp 98.2 F 12/04/17 10:52 Pulse 77 12/04/17 10:52 Resp 18 12/04/17 10:52 BP 119/73 12/04/17 12:49 Pulse Ox 96 12/04/17 10:52 Weight: 128 lb - Exam Quality Assessment: DVT Prophylaxis (score of 4-lovenox). No: Supplemental Oxygen, Urinary Catheter, Skin Breakdown General: Alert, Oriented (x3), Cooperative, Other (Thin, frail) HEENT: Conjunctiva Clear, Hearing Intact, Posterior Pharynx Clear, TMs Clear. No: Mucosa Moist & [place] (pink and dry) Neck: Supple, Trachea Midline. No: Lymphadenopathy Lungs: Clear to Auscultation, Normal Respiratory Effort Cardiovascular: Regular Rate, Regular Rhythm, Normal S1, Normal S2 GI/Abdominal Exam: Soft, No Distention, Tender (generalized), Abnormal Bowel Sounds (hypoactive) Extremities: Pedal Edema (1+ edema to LLE, trace-1+ RLE), Limited Range of Motion (left ankle), Other (tenderness of left lateral and medial malleolus) Skin: Warm, Dry, Intact Neurological: Normal Speech Neuro Extensive - Mental Status: Alert, Oriented x3, Normal Mood/Affect, Normal Cognition, Memory Intact Psychiatric: Alert, Normal Affect, Normal Mood Problem List Initiated/Reviewed/Updated: Yes Orders Last 24hrs: Active Orders 24 hr Category Date Time Status Patient Status [ADT] Routine ADT 12/04/17 10:52 Ordered Dietary Supplements [RC] TIDMEALS Care 12/04/17 10:52 Active Height and Weight [RC] DAILY Care 12/04/17 10:55 Active Intake and Output [RC] 1400,2200,0600 Care 12/04/17 10:52 Active Oxygen Therapy [RC] .PRN Care 12/04/17 10:52 Active Up With Assistance [RC] ASDIRECTED Care 12/04/17 10:52 Active Vital Signs [RC] 0700,1500 Care 12/04/17 10:52 Active PT Evaluation and Treatment [CONS] Routine Cons 12/04/17 10:52 Active Heart Healthy Diet [DIET] Diet 12/04/17 Lunch Active BMP [BASIC METABOLIC PANEL,BMP] [CHEM] AM Lab 12/05/17 05:11 Ordered CBC WITH AUTO DIFF [HEME] AM Lab 12/05/17 05:11 Ordered UA W/MICROSCOPIC [URIN] Routine Lab 12/04/17 12:26 Ordered ALPRAZolam [Xanax] Med 05/07/18 12:23 Active 0.25 mg PO Q8H PRN ARIPiprazole [Abilify] Med 12/05/17 09:00 Active 5 mg PO DAILY Acetaminophen [Tylenol Extra Strength] Med 12/04/17 14:00 Active 1,000 mg PO TID Aspirin [Halfprin] Med 12/05/17 09:00 Active 81 mg PO DAILY Cholecalciferol (Vitamin D3) [Vitamin D3] Med 12/05/17 09:00 Active 4,000 units PO DAILY Chondroitin/Glucosamine [Glucosamine-Chondroitin 500- Med 12/04/17 21:00 Active 400 Capsule] 1 cap PO BID DULoxetine [Cymbalta] Med 12/04/17 21:00 Active 60 mg PO BEDTIME Docusate Sodium/Sennosides [Senna Plus] Med 12/04/17 11:00 Active 1 tab PO BID FA/Lycopene/Lut/MV,Ca,Iron,Min [Centrum] Med 12/05/17 09:00 Active 1 tab PO DAILY Latanoprost [Xalatan 0.005% Ophth Soln] Med 12/04/17 21:00 Active 0 ml EYEBOTH BEDTIME Lisinopril [Prinivil] Med 12/04/17 12:45 Active 2.5 mg PO DAILY@1200 Magnesium Oxide Med 12/05/17 09:00 Active 500 mg PO DAILY Metoprolol Succinate [Toprol XL] Med 12/05/17 09:00 Active 12.5 mg PO DAILY Omeprazole Med 12/05/17 07:30 Active 60 mg PO ACBREAKFAST Polyethylene Glycol 3350 [MiraLAX] Med 12/04/17 11:00 Active 17 gm PO DAILY Tamsulosin [Flomax] Med 12/04/17 21:00 Active 0.4 mg PO BEDTIME traMADol [Ultram] Med 12/04/17 12:45 Active 100 mg PO BID@1200,2100 traMADol [Ultram] Med 12/05/17 09:00 Active 50 mg PO DAILY Encourage Fluids [OM.PC] Routine Oth 12/04/17 12:26 Ordered Resuscitation Status Routine Resus Stat 12/04/17 10:52 Ordered Medication Orders Acetaminophen (Tylenol Extra Strength) 1,000 mg PO TID MEGHA Alprazolam (Xanax) 0.25 mg PO Q8H PRN PRN Reason: Anxiety Aripiprazole (Abilify) 5 mg PO DAILY [facility] Aspirin (Halfprin) 81 mg PO DAILY [facility] Cholecalciferol (Vitamin D3) 4,000 units PO DAILY [facility] Duloxetine HCl (Cymbalta) 60 mg PO BEDTIME [facility] Glucosamine/Chondroitin (Glucosamine-Chondroitin 500-400 Capsule) 1 cap PO BID [facility] Latanoprost (Xalatan 0.005% Ophth Soln) 0 ml EYEBOTH BEDTIME MEGHA Lisinopril (Prinivil) 2.5 mg PO DAILY@1200 [facility] Last Admin: 12/04/17 12:49 Dose: 2.5 mg Magnesium Oxide (Magnesium Oxide) 500 mg PO DAILY [facility] Metoprolol Succinate (Toprol Xl) 12.5 mg PO DAILY [facility] Multivitamins/Minerals (Centrum) 1 tab PO DAILY [facility] Omeprazole (Omeprazole) 60 mg PO ACBREAKFAST [facility] Polyethylene Glycol (Miralax) 17 gm PO DAILY [facility] Last Admin: 12/04/17 12:13 Dose: 17 gm Senna/Docusate Sodium (Senna Plus) 1 tab PO BID [facility] Last Admin: 12/04/17 12:13 Dose: 1 tab Tamsulosin HCl (Flomax) 0.4 mg PO BEDTIME MEGHA Tramadol HCl (Ultram) 50 mg PO DAILY [facility] Tramadol HCl (Ultram) 100 mg PO BID@1200,2100 [facility] Last Admin: 12/04/17 12:47 Dose: 100 mg Assessment/Plan Comment:: HPI: This is an 82 year old male who presented to the ED with severe weakness and mild shortness of breath. The patient had been hospitalized at [facility] in mid- October for new onset acute CHF and a NSTEMI. He was discharged home and followed up in the [facility] and found to have hypotension and weakness. Patient had undergone an ECHO the prior day which showed decreased systolic function, EF 20%, dilated left atrium, and grade 2 diastolic dysfunction. Patient was transferred via ALS ambulance to [facility] for further workup and treatment. He was hospitalized there from 11/21/17-11/24/17 as he was found to have severe combined CHF, hypotension, and acute kidney injury. Patient's states he was doing pretty good until the last few days when he became so weak. She states he is barely able to get around. The patient was admitted to [facility] for acute CHF exacerbation and debility. Pertinent ED workup: -BNP 299 -Creatinine 1.20, BUN 38 -Potassium 5.8 -WBC 11.1 with left shift -Alk phos 129 -Left ankle [id number] changes Further workup: UA-few bacteria, urine culture pending Primary Assessment: -Acute on chronic combined CHF -Debility -Hyperkalemia -CKD stage 3. Recent creatinine of 1.01. -Constipation -Asymptomatic bacteriuria -Left ankle pain -Elevated alkaline phosphatase Plan: -Lasix 20 mg IV now -Strict I & O -Daily weights -Push oral fluids -Miralax 17 gm daily & Senna-S 1 tab po BID -PT referral -Continue tylenol and tramadol for pain -Repeat BMP in AM Chronic, stable problems: -Recent NSTEMI -GERD -Chronic pain on pain contract -Vitamin D deficiency -Depression -BPH -Hypomagnesemia. Mg in AM -Osteoporosis -S/P partial gastrectomy DVT prophylaxis: Score of 4. Lovenox 30 mg subQ daily. Hospitalization details: -Code Status: DNR/DNI-verified with patient and spouse -Emergency contact: -Disposition: The patient will be directly admitted to swing bed status given his recent stay for same diagnosis of CHF exacerbation. He will be seen by physical therapy for his debility. He will be given IV lasix today and output & weight will be monitored closely.
[2017-12-04] MEDS: Acetaminophen 500 MG Tab PO SCH ×2 (14:11→21:00)
[2017-12-04] MEDS ORDERED: DULoxetine 30 MG Cap PO SCH (21:00)
[2017-12-04] MEDS ORDERED: Latanoprost 0.005% Ophth Soln 2.5 ML Bottle EYEBOTH SCH (21:00)
[2017-12-04] MEDS: Chondroitin/Glucosamine Cap PO SCH (21:00)
[2017-12-04] MEDS ORDERED: Tamsulosin 0.4 MG Cap.ER PO SCH (21:00)
[2017-12-05] MEDS ORDERED: diphenhydrAMINE 25 MG Cap PO PRN (04:35)
[2017-12-05] MEDS ORDERED: Enoxaparin 30 MG/0.3 ML Syringe SUBCUT SCH (06:30)
[2017-12-05] MEDS: Acetaminophen 500 MG Tab PO SCH ×2 (07:08→09:55)
[2017-12-05] MEDS: traMADol 50 MG Tab PO SCH ×3 (07:08→11:53)
[2017-12-05] MEDS: Nicotine 7 MG/24 Hr Patch TRDERM SCH ×2 (07:09→08:34)
[2017-12-05] MEDS ORDERED: Omeprazole 20 MG Cap.CR PO SCH (07:30)
[2017-12-05] MEDS ORDERED: Magnesium Oxide 500 MG Tab PO SCH (09:00)
[2017-12-05] MEDS ORDERED: Metoprolol Succinate 25 MG Tab.ER PO SCH (09:00)
[2017-12-05] MEDS ORDERED: Cholecalciferol (Vitamin D3) 1,000 Unit Tab PO SCH (09:00)
[2017-12-05] MEDS ORDERED: Multivitamins with Minerals/Iron/Folic Acid/Lycopene Tab PO SCH (09:00)
[2017-12-05] MEDS ORDERED: ARIPiprazole 5 MG Tab PO SCH (09:00)
[2017-12-05] MEDS ORDERED: Aspirin 81 MG Tab.EC PO SCH (09:00)
--- NOTE | 2017-12-05 09:46 | PCM.SN ---
- Free Text/Narrative Note: Arrival this morning for rounds nurses inform me of concern in patients mental status. They stated he was in his normal and usual state of health and mental capacity this morning during shower however when they put him back in the chair his spouse states he seems confused, and unable to use his right hand to eat breakfast. Examination, Patient alert, knows my name, recognizes me spontaneously, however thinks it's August 07. He knows where he is at. Recognizes people around him, no facial drooping, visual disturbance, no numbness, Speech, preserved comprehension, no Broca aphasia, negative dysarthria, slight jargon aphasia No focal neurological deficit, however some poor concentration
[2017-12-05] MEDS: Chondroitin/Glucosamine Cap PO SCH (09:56)
[2017-12-05] MEDS: Polyethylene Glycol 3350 Powder 17 GM Packet PO SCH (09:57)
[2017-12-05] MEDS: Lisinopril 5 MG Tab PO SCH (11:55)
[2017-12-05 11:56] VITALS: BP 85/49
[2017-12-05] MEDS ORDERED: Sodium Chloride 0.9% 0 ML ONE (14:27)
--- NOTE | 2017-12-06 09:33 | PCM.DCSUM1 ---
Discharge Summary - Discharge Data Discharge Date: 12/05/17 Discharge Disposition: DC/Tfer to Acute Hospital 02 Condition: Stable - Patient Summary/Data Consults: Consultations 12/04/17 10:52 PT Evaluation and Treatment [CONS] Routine 12/05/17 04:32 Consult to Outside Sales Account Manager [CONS] Routine - Discharge Plan Home Medications: Home Meds Acetaminophen [Tylenol Extra Strength] 1,000 mg PO TID 03/16/14 [History] DULoxetine [Cymbalta] 60 mg PO BEDTIME 03/16/14 [History] Multivitamin [Multi-Vitamin Daily] 1 tab PO DAILY 03/16/14 [History] Omeprazole 60 mg PO DAILY 03/16/14 [History] traMADol [Ultram] 50 mg PO DAILY 03/16/14 [History] Aspirin [Halfprin] 81 mg PO DAILY 10/30/17 [History] Gluc HCl/Csa/Tran Hy/Hyalur Ac [Glucosamine Chondroitin] 1 each PO BID 10/30/17 [History] Magnesium Oxide 400 mg PO DAILY 10/30/17 [History] Latanoprost 1 drop EYEBOTH BEDTIME 11/12/17 [History] ALPRAZolam [Xanax] 0.25 mg PO Q8HR PRN #30 tablet 11/15/17 [Rx] Metoprolol Succinate [Toprol XL] 12.5 mg PO DAILY #60 tab.er 11/15/17 [Rx] ARIPiprazole [Abilify] 5 mg PO DAILY 12/04/17 [History] Cholecalciferol (Vitamin D3) [Thera-D] 4,000 unit PO DAILY 12/04/17 [History] Lisinopril [Prinivil] 2.5 mg PO DAILY@1200 12/04/17 [History] Tamsulosin [Flomax] 0.4 mg PO BEDTIME 12/04/17 [History] traMADol [Ultram] 100 mg PO BID@1200,2100 12/04/17 [History] - Discharge Summary/Plan Comment DC Time >30 min.: Yes Discharge Summary/Plan Comment: History This 82-year-old gentleman was initially admitted directly into swing bed from the ED. His had initially attempted to bring him into outpatient [facility] however due to generalized weakness, more difficulty ambulating, ankle pain, back pain, fatigue, we were not able to safely take him from his vehicle and he was advised to report to the ED. His ED workup demonstrated BNP 299, creatinine 1.20, BUN 38, Potassium 5.8, WBC 11.1, Alk phos 129, Left ankle x-ray -degenerative changes, long with UA showing few bacteria. Angel had been hospitalized at [facility] October for new onset acute CHF and a NSTEMI. He was eventually discharged home in which an echocardiogram was subsequently obtained showing an EF of 20%. He was transferred to [facility] for evaluation in which he spent a few days in the hospital due to CHF, acute kidney injury, hypotension with recommendations of initially placing him back on ISIDORO inhibitor's and beta blockers as tolerated and repeating echocardiogram in a few months. Hospital course Initially early on his hospital course went fairly well. He was given 20 mg one time Lasix on admission, PT referral was placed, he did have ongoing hypotension and his metoprolol along with lisinopril was held. On the morning of December 05 during rounds the nurses reported that the patient after his shower just did not seem right. On evaluation the patient was alert, talking, recognized me, when asked the date he thought it was the month of July, he could recognize me holding a fork, could name objects, no slurred speech however at one point he stated something that was incomprehensible. Pupils equal and reactive to light, cranial nerve II-12 grossly intact with no focal deficits although he did have a very slight less of a change control manager in his right hand compared to his left. He was able to track my moving finger, no facial, no facial numbness, drooping good smile, good gag reflex. Spouse stated he did not sleep well the night before. 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 I notified neurology 1 call [facility] and he recommended CTA head and neck, a test in which [facility] could not perform that day. I then notified 1 call, [facility] and asked them to inform the neurologist of my inability to obtain this test and request transfer to [facility]. I eventually was notified that the patient would be accepted into [facility] however would be notified upon bed availability. Between the time of the bed availability and coordinating ambulance transfer I was notified approximately 12:00 that the patient had a change of status and could not produce a smile and no use of right arm. I notified 1 call to assist me informing the neurologist of the change of status, informing nurses at [facility] to expedite transportation, and commented to Aggie LUNA that the patient may need TPA and to have ambulance start screening the patient to see if he would be a candidate. The patient eventually recieved TPA and was transferred to a [facility] ED. - Patient Data Vitals - Most Recent: Last Vital Signs Temp 98.0 F 12/05/17 07:00 Pulse 80 12/05/17 12:07 Resp 20 12/05/17 07:00 BP 85/49 L 12/05/17 11:55 Pulse Ox 94 L 12/05/17 12:07 Weight - Most Recent: 128 lb Lab Results - Last 24 hrs: Laboratory Results - last 24 hr 12/05/17 12/05/17 12/05/17 Range/Units 12:30 14:30 14:30 ESR (0-15) mm/hr PT 9.7 (8.9-11.4) SEC INR 1.0 (0.9-1.1) APTT (20.8-31.2) SEC Creatine Kinase 20 L (26-276) U/L CK-MB (CK-2) 1.10 (0.00-4.30) ng/mL Troponin I 0.07 Cancelled (0.00-0.070) ng/mL 12/05/17 12/05/17 Range/Units 14:30 14:30 ESR 85 H (0-15) mm/hr PT (8.9-11.4) SEC INR (0.9-1.1) APTT 34.1 H (20.8-31.2) SEC Creatine Kinase (26-276) U/L CK-MB (CK-2) (0.00-4.30) ng/mL Troponin I (0.00-0.070) ng/mL Med Orders - Current: Current Medications Discontinued Medications Acetaminophen (Tylenol Extra Strength) 1,000 mg PO TID MEG[facility] Last Admin: 12/05/17 09:55 Dose: Not Given Alprazolam (Xanax) 0.25 mg PO Q8H PRN PRN Reason: Anxiety Last Admin: 12/05/17 02:00 Dose: 0.25 mg Aripiprazole (Abilify) 5 mg PO DAILY [facility] Last Admin: 12/05/17 09:55 Dose: 5 mg Aspirin (Halfprin) 81 mg PO DAILY [facility] Last Admin: 12/05/17 09:57 Dose: 81 mg Cholecalciferol (Vitamin D3) 4,000 units PO DAILY [facility] Last Admin: 12/05/17 09:59 Dose: 4,000 units Duloxetine HCl (Cymbalta) 60 mg PO BEDTIME [facility] Last Admin: 12/04/17 21:00 Dose: 60 mg Enoxaparin Sodium (Lovenox) 30 mg SUBCUT Q24H [facility] Last Admin: 12/05/17 07:07 Dose: 30 mg Furosemide (Lasix) 20 mg IVPUSH NOW ONE Stop: 12/04/17 12:46 Last Admin: 12/04/17 12:49 Dose: 20 mg Glucosamine/Chondroitin (Glucosamine-Chondroitin 500-400 Capsule) 1 cap PO BID [facility] Last Admin: 12/05/17 09:56 Dose: 1 cap Dextrose/Sodium Chloride (Dextrose 5%-1/2 Ns) 250 mls @ 60 mls/hr IV ASDIRECTED [facility] Stop: 12/05/17 16:30 Last Admin: 12/05/17 12:30 Dose: 60 mls/hr Sodium Chloride (Normal Saline) Confirm Administered Dose 50 mls @ as directed .ROUTE .STK-MED ONE Stop: 12/05/17 14:28 Latanoprost (Xalatan 0.005% Ophth Soln) 0 ml EYEBOTH BEDTIME [facility] Last Admin: 12/04/17 21:00 Dose: 1 drop Lisinopril (Prinivil) 2.5 mg PO DAILY@1200 [facility] Last Admin: 12/05/17 11:55 Dose: Not Given Magnesium Oxide (Magnesium Oxide) 500 mg PO DAILY [facility] Last Admin: 12/05/17 09:57 Dose: 500 mg Metoprolol Succinate (Toprol Xl) 12.5 mg PO DAILY [facility] Last Admin: 12/05/17 09:57 Dose: Not Given Multivitamins/Minerals (Centrum) 1 tab PO DAILY [facility] Last Admin: 12/05/17 09:56 Dose: 1 tab Nicotine (Habitrol) 7 mg TRDERM DAILY [facility] Last Admin: 12/05/17 08:34 Dose: Not Given Omeprazole (Omeprazole) 60 mg PO ACBREAKFAST [facility] Last Admin: 12/05/17 07:04 Dose: 60 mg Polyethylene Glycol (Miralax) 17 gm PO DAILY [facility] Last Admin: 12/05/17 09:57 Dose: 17 gm Senna/Docusate Sodium (Senna Plus) 1 tab PO BID [facility] Last Admin: 12/05/17 09:57 Dose: 1 tab Tamsulosin HCl (Flomax) 0.4 mg PO BEDTIME [facility] Last Admin: 12/04/17 21:00 Dose: 0.4 mg Tramadol HCl (Ultram) 50 mg PO DAILY [facility] Last Admin: 12/05/17 09:58 Dose: Not Given Tramadol HCl (Ultram) 100 mg PO BID@1200,2100 [facility] Last Admin: 12/05/17 11:53 Dose: 100 mg
== END 2017-12-05 14:36 | DRG 292 ==
LOC: KA.MS 10:26
PROVIDERS: ADMIT Physician Assistant Surgical; ATTEND Nurse Practitioner Family
DX: I50.43 Acute on chronic combined systolic (congestive) and diastolic (congestive) heart failure (principal); I13.0 Hypertensive heart and chronic kidney disease with heart failure and stage 1 through stage 4 chronic kidney disease, or unspecified chronic kidney disease; F41.8 Other specified anxiety disorders; R53.1 Weakness; R06.02 Shortness of breath; R53.81 Other malaise; E87.5 Hyperkalemia; N18.3 Chronic kidney disease, stage 3 (moderate); K59.00 Constipation, unspecified; R82.71 Bacteriuria; M25.572 Pain in left ankle and joints of left foot; R79.89 Other specified abnormal findings of blood chemistry; K21.9 Gastro-esophageal reflux disease without esophagitis; G89.29 Other chronic pain; E55.9 Vitamin D deficiency, unspecified; N40.0 Benign prostatic hyperplasia without lower urinary tract symptoms; E83.42 Hypomagnesemia; M81.0 Age-related osteoporosis without current pathological fracture; F17.200 Nicotine dependence, unspecified, uncomplicated; Z85.028 Personal history of other malignant neoplasm of stomach; Z85.828 Personal history of other malignant neoplasm of skin; Z79.82 Long term (current) use of aspirin; Z88.0 Allergy status to penicillin; Z79.899 Other long term (current) drug therapy; Z90.3 Acquired absence of stomach [part of]; Z66 Do not resuscitate; R41.0 Disorientation, unspecified
CPT/HCPCS: 36415; 70450; 80048; 81001; 82550; 82553; 83735; 84484; 85025; 85610; 85651; 85730; 87086; A9270-GY; J1650; J1940; J2997; J7042

== ENCOUNTER 2017-12-11 11:25 | Inpatient (IN) | payer MEDICARE, OTHER ==
[2017-12-11] MEDS: traMADol 50 MG Tab PO SCH (18:56)
[2017-12-11] MEDS ORDERED: Lisinopril 5 MG Tab PO SCH (21:00)
[2017-12-11] MEDS: Chondroitin/Glucosamine Cap PO SCH (21:48)
[2017-12-11] MEDS: atorvaSTATin 10 MG Tab PO SCH (21:48)
[2017-12-11] MEDS: Acetaminophen 500 MG Tab PO SCH (21:52)
[2017-12-11] MEDS: Tamsulosin 0.4 MG Cap.ER PO SCH (21:52)
[2017-12-11] MEDS: Latanoprost 0.005% Ophth Soln 2.5 ML Bottle EYEBOTH SCH (21:54)
[2017-12-12] MEDS: traMADol 50 MG Tab PO SCH ×4 (01:04→20:47)
[2017-12-12] MEDS: Omeprazole 20 MG Cap.CR PO SCH (06:44)
[2017-12-12] MEDS: Chondroitin/Glucosamine Cap PO SCH ×2 (08:48→20:48)
[2017-12-12] MEDS: Acetaminophen 500 MG Tab PO SCH ×3 (08:49→20:45)
[2017-12-12] MEDS: Multivitamins with Minerals/Iron/Folic Acid/Lycopene Tab PO SCH (08:49)
[2017-12-12] MEDS: Magnesium Oxide 500 MG Tab PO SCH (08:49)
[2017-12-12] MEDS: DULoxetine 30 MG Cap PO SCH (08:51)
[2017-12-12] MEDS: Metoprolol Succinate 25 MG Tab.ER PO SCH (08:55)
[2017-12-12] MEDS: Aspirin 81 MG Tab.EC PO SCH (08:55)
[2017-12-12] MEDS: ARIPiprazole 5 MG Tab PO SCH (08:55)
[2017-12-12] MEDS: Cholecalciferol (Vitamin D3) 1,000 Unit Tab PO SCH (08:56)
--- NOTE | 2017-12-12 10:04 | PCM.HP ---
H&P History of Present Illness - General Date of Service: 12/12/17 Admit Problem/Dx: Admission Diagnosis/Problem Admission Diagnosis/Problem Debility Source of Information: Patient, Family, Old Records, RN Neck Pain Score (Numeric/FACES): 3 - Related Data Allergies/Adverse Reactions: Allergies Allergy/AdvReac Type Severity Reaction Status Date / Time Penicillins Allergy Hives Verified 12/11/17 12:38 BEE STINGS Allergy Severe Anaphylactic Uncoded 12/04/17 11:02 Shock Home Medications: Home Meds Acetaminophen [Tylenol Extra Strength] 1,000 mg PO TID 03/16/14 [History] DULoxetine [Cymbalta] 60 mg PO DAILY 03/16/14 [History] Multivitamin [Multi-Vitamin Daily] 1 tab PO DAILY 03/16/14 [History] Omeprazole 60 mg PO ACBREAKFAST 03/16/14 [History] traMADol [Ultram] 50 mg PO Q8H 03/16/14 [History] Aspirin [Halfprin] 81 mg PO DAILY 10/30/17 [History] Gluc HCl/Csa/Tran Hy/Hyalur Ac [Glucosamine Chondroitin] 1 each PO BID 10/30/17 [History] Magnesium Oxide 400 mg PO DAILY 10/30/17 [History] Latanoprost 1 drop EYEBOTH BEDTIME 11/12/17 [History] Metoprolol Succinate [Toprol XL] 12.5 mg PO DAILY #60 tab.er 11/15/17 [Rx] ARIPiprazole [Abilify] 5 mg PO DAILY 12/04/17 [History] Cholecalciferol (Vitamin D3) [Thera-D] 4,000 unit PO DAILY 12/04/17 [History] Lisinopril [Prinivil] 2.5 mg PO BEDTIME 12/04/17 [History] Tamsulosin [Flomax] 0.4 mg PO BEDTIME 12/04/17 [History] atorvaSTATin [Lipitor] 10 mg PO BEDTIME 12/11/17 [History] Past Medical History HEENT History: Reports: Cataract, Impaired Vision Cardiovascular History: Reports: Heart Failure, Hypertension Respiratory History: Reports: None Gastrointestinal History: Reports: Other (See Below) Other Gastrointestinal History: esophageal ulcers,abdominal hernia Genitourinary History: Reports: BPH Musculoskeletal History: Reports: Arthritis, Back Pain, Chronic, Osteoarthritis , Osteoporosis Other Musculoskeletal History: chronic ankle pain Psychiatric History: Reports: Anxiety, Depression Hematologic History: Reports: Anemia, Blood Transfusion(s) Oncologic (Cancer) History: Reports: Basal Cell Carcinoma, Squamous Cell Carcinoma Other Oncologic History: neoplasm of uncertain behavior of stomach, intestines and rectum - Infectious Disease History Infectious Disease History: Reports: Chicken Pox, Measles, Mumps - Past Surgical History Head Surgeries/Procedures: Reports: None HEENT Surgical History: Reports: Cataract Surgery, Oral Surgery, Tonsillectomy Cardiovascular Surgical History: Reports: None GI Surgical History: Reports: Colonoscopy, Other (See Below) Other GI Surgeries/Procedures: abdominal surgery to reconnect stomach and 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 Male Surgical History: Reports: None Musculoskeletal Surgical History: Reports: Hip Replacement Oncologic Surgical History: Reports: None Dermatological Surgical History: Reports: None Social & Family History - Family History Family Medical History: Noncontributory Cardiac: Reports: High Cholesterol, Hypertension Musculoskeletal: Reports: Arthritis - Tobacco Use Smoking Status *Q: Former Smoker Used Tobacco, but Quit: Yes Month/Year Tobacco Last Used: 11/15 - Caffeine Use Caffeine Use: Reports: Soda Other Caffeine Use: regular - Recreational Drug Use Recreational Drug Use: No H&P Review of Systems - Review of Systems: Review Of Systems: See Below General: Reports: Weakness, Weight Loss. Denies: Night Sweats, Diaphoresis, Decreased Appetite HEENT: Reports: No Symptoms Pulmonary: Reports: No Symptoms Cardiovascular: Denies: Blood Pressure Problem Gastrointestinal: Reports: No Symptoms Genitourinary: Reports: No Symptoms Musculoskeletal: Reports: Neck Pain, Muscle Stiffness. Denies: Arm Pain, Back Pain Skin: Reports: No Symptoms Psychiatric: Reports: No Symptoms Neurological: Reports: Pre-Existing Deficit, Tremors, Difficulty Walking, Gait Disturbance. Denies: Dizziness, Headache, Numbness, Tingling, Change in Speech Hematologic/Lymphatic: Reports: No Symptoms Immunologic: Reports: No Symptoms Exam - Exam Exam: See Below - Vital Signs Vital Signs: Last Vital Signs Temp 98.2 F 12/12/17 06:41 Pulse 97 12/12/17 08:55 Resp 18 12/12/17 06:41 BP 134/90 12/12/17 08:55 Pulse Ox 98 12/12/17 06:41 Weight: 123 lb 8 oz - Exam Quality Assessment: No: Supplemental Oxygen General: Alert, Oriented, Cooperative HEENT: Mucosa Moist & [place] Neck: No: JVD Lungs: Clear to Auscultation, Normal Respiratory Effort. No: Crackles, Rales Cardiovascular: Normal S1, Normal S2 GI/Abdominal Exam: Soft (Male) Exam: Deferred Rectal (Males) Exam: Deferred Back Exam: No: CVA Tenderness (L), CVA Tenderness (R) Extremities: No Pedal Edema Peripheral Pulses: 2+: Radial (L), Radial (R) Skin: Warm, Dry, Intact Neurological: Cranial Nerves Intact, Strength Equal Bilateral, Normal Speech, Normal Tone. No: Focal Deficit Neuro Extensive - Mental Status: Alert, Oriented x3, Normal Mood/Affect, Normal Cognition Neuro Extensive - Motor, Sensory, Reflexes: CN II-XII Intact Psychiatric: Alert, Normal Affect, Normal Mood Problem List Initiated/Reviewed/Updated: Yes Orders Last 24hrs: Active Orders 24 hr Category Date Time Status Patient Status [ADT] Routine ADT 12/11/17 18:23 Ordered Communication Order [RC] DAILY Care 12/11/17 12:45 Active Communication Order [RC] DAILY Care 12/11/17 12:46 Active Communication Order [RC] DAILY Care 12/11/17 12:47 Active Daily Weight [Height and Weight] [RC] DAILY Care 12/12/17 07:00 Active Up With Assistance [RC] ASDIRECTED Care 12/11/17 18:23 Active Vital Signs [RC] BID Care 12/11/17 18:23 Active PT Evaluation and Treatment [CONS] Routine Cons 12/11/17 18:34 Active Heart Healthy Diet [DIET] Diet 12/11/17 Dinner Active ARIPiprazole [Abilify] Med 12/12/17 09:00 Active 5 mg PO DAILY Acetaminophen [Tylenol Extra Strength] Med 12/11/17 21:00 Active 1,000 mg PO TID Aspirin [Halfprin] Med 12/12/17 09:00 Active 81 mg PO DAILY Cholecalciferol (Vitamin D3) [Vitamin D3] Med 12/12/17 09:00 Active 4,000 units PO DAILY Chondroitin/Glucosamine [Glucosamine-Chondroitin 500- Med 12/11/17 21:00 Active 400 Capsule] 1 cap PO BID DULoxetine [Cymbalta] Med 12/12/17 09:00 Active 60 mg PO DAILY FA/Lycopene/Lut/MV,Ca,Iron,Min [Centrum] Med 12/12/17 09:00 Active 1 tab PO DAILY Latanoprost [Xalatan 0.005% Ophth Soln] Med 12/11/17 21:00 Active 0 ml EYEBOTH BEDTIME Lisinopril [Prinivil] Med 12/11/17 21:00 Active 2.5 mg PO BEDTIME Magnesium Oxide Med 12/12/17 09:00 Active 500 mg PO DAILY Metoprolol Succinate [Toprol XL] Med 12/12/17 09:00 Active 12.5 mg PO DAILY Omeprazole Med 12/12/17 07:00 Active 60 mg PO DAILY@0700 Tamsulosin [Flomax] Med 12/11/17 21:00 Active 0.4 mg PO BEDTIME atorvaSTATin [Lipitor] Med 12/11/17 21:00 Active 10 mg PO BEDTIME traMADol [Ultram] Med 12/11/17 18:00 Active 50 mg PO Q8H Code Status [Resuscitation Status] Routine Resus Stat 12/11/17 18:27 Ordered Medication Orders Acetaminophen (Tylenol Extra Strength) 1,000 mg PO TID [facility] Last Admin: 12/12/17 08:49 Dose: 1,000 mg Admin: 12/11/17 21:52 Dose: 1,000 mg Aripiprazole (Abilify) 5 mg PO DAILY [facility] Last Admin: 12/12/17 08:55 Dose: 5 mg Aspirin (Halfprin) 81 mg PO DAILY [facility] Last Admin: 12/12/17 08:55 Dose: 81 mg Atorvastatin Calcium (Lipitor) 10 mg PO BEDTIME [facility] Last Admin: 12/11/17 21:48 Dose: 10 mg Cholecalciferol (Vitamin D3) 4,000 units PO DAILY [facility] Last Admin: 12/12/17 08:56 Dose: 4,000 units Duloxetine HCl (Cymbalta) 60 mg PO DAILY [facility] Last Admin: 12/12/17 08:51 Dose: 60 mg Glucosamine/Chondroitin (Glucosamine-Chondroitin 500-400 Capsule) 1 cap PO BID [facility] Last Admin: 12/12/17 08:48 Dose: 1 cap Admin: 12/11/17 21:48 Dose: 1 cap Latanoprost (Xalatan 0.005% Ophth Soln) 0 ml EYEBOTH BEDTIME [facility] Last Admin: 12/11/17 21:54 Dose: 1 drop Lisinopril (Prinivil) 2.5 mg PO BEDTIME [facility] Last Admin: 12/11/17 23:08 Dose: Not Given Magnesium Oxide (Magnesium Oxide) 500 mg PO DAILY [facility] Last Admin: 12/12/17 08:49 Dose: 500 mg Metoprolol Succinate (Toprol Xl) 12.5 mg PO DAILY [facility] Last Admin: 12/12/17 08:55 Dose: 12.5 mg Multivitamins/Minerals (Centrum) 1 tab PO DAILY [facility] Last Admin: 12/12/17 08:49 Dose: 1 tab Omeprazole (Omeprazole) 60 mg PO DAILY@0700 [facility] Last Admin: 12/12/17 06:44 Dose: 60 mg Tamsulosin HCl (Flomax) 0.4 mg PO BEDTIME [facility] Last Admin: 12/11/17 21:52 Dose: 0.4 mg Tramadol HCl (Ultram) 50 mg PO Q8H [facility] Last Admin: 12/12/17 01:04 Dose: 50 mg Admin: 12/11/17 18:56 Dose: 50 mg Assessment/Plan Comment:: HISTORY OF PRESENT ILLNESS 82-year-old gentleman returns back to detention care here at [facility] after an acute hospitalization when the patient was transferred acutely due to concern for CVA. Hhe was worked up extensively at [facility], neurovascular due to confusion and right-sided weakness with inability to move upper extremity--no CVA other than old chronic. Patient was recently diagnosed with heart failure/cardiomyopathy with an ejection fraction of 20 which did improve to 25%. He had been started on beta rosita and low- dose lisinopril however due to low blood pressures he could not tolerate this medication and had subsequent dehydration and acute kidney injury. CT head was negative. Patient was given tPa before transferring to [facility] for further management. On arrival Neurovascular was consulted,CTA of the head and neck was negative for large vessel occlusion. Subsequent MR of the brain was negative for acute ischemic stroke. His symptoms improved and he was transferred out of the intensive care unit on December 06. She does have significant multilevel cervical degenerative disc disease severe foraminal narrowing in which neurosurgery recommended conservative management and his tramadol was decreased by 50% Primary problems Multilevel Degenerative Disc Disease, conservative management, neck Hammick, seating ongoing physical therapy, heating pad, will add Voltaren gel Right Upper Extremity Weakness, thought to be d/t severe foraminal narrowing/ cervical. CKD Stage III; Baseline Cr around around 1. Monitor carefully. Voiding well. Recent NSTEMI Type II, likely 2/2 Hypotension, Continue Toprol XL 12.5 mg daily. Monitor BP closely in order to place back on disease-modifying ISIDORO inhibitor. HFrEF; cardiomyopathy, Combined Systolic/Diastolic, recent ECHO improved EF 25% , Toprol XL 12.5 mg.holding ISIDORO inhibitor for now. Will continue monitoring blood pressures in attempts to reinitiate eventually targeted goal of 20-30mg. R/O Parkinson's disease Secondary problems depression, stable now much improvement, on Cymbalta GERD, on high dose PPI, will attempt to titrate down BPH, tamsulosin, stable future follow-up appointments F/U with Dr Grigsby and Roseline Blair APRN 12/26/17 at 10:00 [facility]. F/U with Dr Awad Neuroscience 02/14/18 12:00 Neuroscience Building. F/U Arabella CALDERON Dermatology 04/10/18 1:20 Dermatology clinic.
[2017-12-12] MEDS: Tamsulosin 0.4 MG Cap.ER PO SCH (20:48)
[2017-12-12] MEDS: atorvaSTATin 10 MG Tab PO SCH (20:49)
[2017-12-12] MEDS: Latanoprost 0.005% Ophth Soln 2.5 ML Bottle EYEBOTH SCH (20:49)
[2017-12-13] MEDS: Omeprazole 20 MG Cap.CR PO SCH (06:25)
[2017-12-13] MEDS: traMADol 50 MG Tab PO SCH ×3 (08:30→19:48)
[2017-12-13] MEDS: ARIPiprazole 5 MG Tab PO SCH (08:31)
[2017-12-13] MEDS: Aspirin 81 MG Tab.EC PO SCH (08:31)
[2017-12-13] MEDS: Acetaminophen 500 MG Tab PO SCH ×3 (08:31→20:46)
[2017-12-13] MEDS: Cholecalciferol (Vitamin D3) 1,000 Unit Tab PO SCH (08:31)
[2017-12-13] MEDS: Multivitamins with Minerals/Iron/Folic Acid/Lycopene Tab PO SCH (08:32)
[2017-12-13] MEDS: Chondroitin/Glucosamine Cap PO SCH ×2 (08:32→20:46)
[2017-12-13] MEDS: DULoxetine 30 MG Cap PO SCH (08:32)
[2017-12-13] MEDS: Magnesium Oxide 500 MG Tab PO SCH (08:32)
[2017-12-13] MEDS: Metoprolol Succinate 25 MG Tab.ER PO SCH (08:34)
[2017-12-13] MEDS: Tamsulosin 0.4 MG Cap.ER PO SCH (20:46)
[2017-12-13] MEDS: Latanoprost 0.005% Ophth Soln 2.5 ML Bottle EYEBOTH SCH (20:47)
[2017-12-13] MEDS: atorvaSTATin 10 MG Tab PO SCH (20:47)
[2017-12-14] MEDS: traMADol 50 MG Tab PO SCH ×4 (06:28→20:00)
[2017-12-14] MEDS: Omeprazole 20 MG Cap.CR PO SCH (06:28)
[2017-12-14] MEDS: Cholecalciferol (Vitamin D3) 1,000 Unit Tab PO SCH (09:45)
[2017-12-14] MEDS: Acetaminophen 500 MG Tab PO SCH ×3 (09:45→21:07)
[2017-12-14] MEDS: Aspirin 81 MG Tab.EC PO SCH (09:46)
[2017-12-14] MEDS: Multivitamins with Minerals/Iron/Folic Acid/Lycopene Tab PO SCH (09:46)
[2017-12-14] MEDS: ARIPiprazole 5 MG Tab PO SCH (09:46)
[2017-12-14] MEDS: Chondroitin/Glucosamine Cap PO SCH ×2 (09:46→21:06)
[2017-12-14] MEDS: DULoxetine 30 MG Cap PO SCH (09:46)
[2017-12-14] MEDS: Magnesium Oxide 500 MG Tab PO SCH (09:46)
[2017-12-14] MEDS: Metoprolol Succinate 25 MG Tab.ER PO SCH (09:47)
--- NOTE | 2017-12-14 09:53 | PCM.PN ---
- General Info Date of Service: 12/14/17 Functional Status: Reports: Pain Controlled, Tolerating Diet, Ambulating ( ambulating 4 wheel walker) - Review of Systems General: Reports: Weakness (slight weakness right hand) HEENT: Reports: No Symptoms Pulmonary: Reports: No Symptoms Cardiovascular: Reports: No Symptoms Gastrointestinal: Reports: No Symptoms Genitourinary: Reports: No Symptoms Musculoskeletal: Reports: Neck Pain Skin: Reports: No Symptoms Neurological: Reports: Pre-Existing Deficit, Difficulty Walking, Weakness, Gait Disturbance. Denies: Confusion, Dizziness, Headache, Numbness, Paresthesia, Seizure, Syncope, Tingling, Tremors, Trouble Speaking, Change in Speech Psychiatric: Reports: No Symptoms - Patient Data Vitals - Most Recent: Last Vital Signs Temp 98.4 F 12/14/17 07:00 Pulse 84 12/14/17 07:00 Resp 16 12/14/17 07:00 BP 108/68 12/14/17 07:00 Pulse Ox 94 L 12/14/17 07:00 Weight - Most Recent: 127 lb 1 oz I&O - Last 24 Hours: Intake & Output 12/13/17 12/14/17 12/14/17 22:59 06:59 14:59 Intake Total 300 100 Output Total 100 500 Balance 200 -400 Med Orders - Current: Current Medications Acetaminophen (Tylenol Extra Strength) 1,000 mg PO TID [facility] Last Admin: 12/13/17 20:46 Dose: 1,000 mg Aripiprazole (Abilify) 5 mg PO DAILY [facility] Last Admin: 12/13/17 08:31 Dose: 5 mg Aspirin (Halfprin) 81 mg PO DAILY [facility] Last Admin: 12/13/17 08:31 Dose: 81 mg Atorvastatin Calcium (Lipitor) 10 mg PO BEDTIME [facility] Last Admin: 12/13/17 20:47 Dose: 10 mg Cholecalciferol (Vitamin D3) 4,000 units PO DAILY [facility] Last Admin: 12/13/17 08:31 Dose: 4,000 units Duloxetine HCl (Cymbalta) 60 mg PO DAILY [facility] Last Admin: 12/13/17 08:32 Dose: 60 mg Glucosamine/Chondroitin (Glucosamine-Chondroitin 500-400 Capsule) 1 cap PO BID [facility] Last Admin: 12/13/17 20:46 Dose: 1 cap Latanoprost (Xalatan 0.005% Ophth Soln) 0 ml EYEBOTH BEDTIME [facility] Last Admin: 12/13/17 20:47 Dose: 1 drop Lisinopril (Prinivil) 2.5 mg PO BEDTIME [facility] Last Admin: 12/11/17 23:08 Dose: Not Given Magnesium Oxide (Magnesium Oxide) 500 mg PO DAILY [facility] Last Admin: 12/13/17 08:32 Dose: 500 mg Metoprolol Succinate (Toprol Xl) 12.5 mg PO DAILY [facility] Last Admin: 12/13/17 08:34 Dose: 12.5 mg Multivitamins/Minerals (Centrum) 1 tab PO DAILY [facility] Last Admin: 12/13/17 08:32 Dose: 1 tab Omeprazole (Omeprazole) 60 mg PO DAILY@0700 [facility] Last Admin: 12/14/17 06:28 Dose: 60 mg Tamsulosin HCl (Flomax) 0.4 mg PO BEDTIME [facility] Last Admin: 12/13/17 20:46 Dose: 0.4 mg Tramadol HCl (Ultram) 50 mg PO TID@0800,1400,2000 [facility] Last Admin: 12/14/17 06:28 Dose: 50 mg Discontinued Medications Tramadol HCl (Ultram) 50 mg PO Q8H [facility] Last Admin: 12/12/17 10:33 Dose: 50 mg - Exam Quality Assessment: No: Supplemental Oxygen General: Alert, Oriented, No Acute Distress Lungs: Clear to Auscultation, Normal Respiratory Effort Cardiovascular: Regular Rate, Regular Rhythm Back Exam: Decreased Range of Motion (crepitus cervical). No: Muscle Spasm Extremities: No Pedal Edema Neurological: Normal Speech, Sensation Intact, Cranial Nerves Intact, Other ( right hand 4/5 strength) Psy/Mental Status: Alert, Normal Affect, Normal Mood - Problem List Review Problem List Initiated/Reviewed/Updated: Yes - Plan Plan:: HISTORY OF PRESENT ILLNESS 82-year-old gentleman returns back to long term care here at [facility] after an acute hospitalization [facility] when the patient was transferred acutely due to concern for CVA. Hhe was worked up extensively at [facility], neurovascular due to confusion and right-sided weakness with inability to move upper extremity--no CVA other than old chronic. Patient was recently diagnosed with heart failure/cardiomyopathy with an ejection fraction of 20 which did improve to 25%. He had been started on beta rosita and low- dose lisinopril however due to low blood pressures he could not tolerate this medication and had subsequent dehydration and acute kidney injury. CT head was negative. Patient was given tPa before transferring to [facility] for further management. On arrival Neurovascular was consulted,CTA of the head and neck was negative for large vessel occlusion. Subsequent MR of the brain was negative for acute ischemic stroke. His symptoms improved and he was transferred out of the intensive care unit on December 06. She does have significant multilevel cervical degenerative disc disease severe foraminal narrowing in which neurosurgery recommended conservative management and his tramadol was decreased by 50% nurses report after physical therapy soreness in right hand, patient does describe right hand weakness at times, decreased core manager 4/5 strength, Primary problems Multilevel Degenerative Disc Disease, conservative management, neck Hammick, seating ongoing physical therapy, heating pad, will add Voltaren gel Right Upper Extremity Weakness, thought to be d/t severe foraminal narrowing/ cervical. CKD Stage III; Baseline Cr around around 1. Monitor carefully. Voiding well. Recent NSTEMI Type II, likely 2/2 Hypotension, Continue Toprol XL 12.5 mg daily. Monitor BP closely in order to place back on disease-modifying ISIDORO inhibitor. HFrEF; cardiomyopathy, Combined Systolic/Diastolic, recent ECHO improved EF 25% , Toprol XL 12.5 mg.holding ISIDORO inhibitor for now. Will continue monitoring blood pressures in attempts to reinitiate eventually targeted goal of 20-30mg. R/O Parkinson's disease Secondary problems depression, stable now much improvement, on Cymbalta GERD, on high dose PPI, will attempt to titrate down BPH, tamsulosin, stable future follow-up appointments F/U with Dr Grigsby and Roseline Blair APRN 12/26/17 at 10:00 [facility]. F/U with Dr Ritesh Horton 02/14/18 12:00 Neuroscience [facility]. F/U Arabella CALDERON Dermatology 04/10/18 1:20 Dermatology clinic.
[2017-12-14] MEDS: Diclofenac Sodium 1% Gel 100 GM Tube TOP SCH ×3 (10:10→21:07)
[2017-12-14] MEDS: atorvaSTATin 10 MG Tab PO SCH (21:06)
[2017-12-14] MEDS: Tamsulosin 0.4 MG Cap.ER PO SCH (21:06)
[2017-12-14] MEDS: Latanoprost 0.005% Ophth Soln 2.5 ML Bottle EYEBOTH SCH (21:07)
[2017-12-15] MEDS: Omeprazole 20 MG Cap.CR PO SCH (07:26)
[2017-12-15] MEDS: traMADol 50 MG Tab PO SCH ×3 (08:01→19:47)
[2017-12-15] MEDS: Diclofenac Sodium 1% Gel 100 GM Tube TOP SCH ×3 (08:02→20:52)
[2017-12-15] MEDS: Cholecalciferol (Vitamin D3) 1,000 Unit Tab PO SCH (08:03)
[2017-12-15] MEDS: Chondroitin/Glucosamine Cap PO SCH ×2 (08:04→20:50)
[2017-12-15] MEDS: Aspirin 81 MG Tab.EC PO SCH (08:04)
[2017-12-15] MEDS: ARIPiprazole 5 MG Tab PO SCH (08:04)
[2017-12-15] MEDS: Magnesium Oxide 500 MG Tab PO SCH (08:04)
[2017-12-15] MEDS: Multivitamins with Minerals/Iron/Folic Acid/Lycopene Tab PO SCH (08:05)
[2017-12-15] MEDS: DULoxetine 30 MG Cap PO SCH (08:05)
[2017-12-15] MEDS: Metoprolol Succinate 25 MG Tab.ER PO SCH (08:06)
[2017-12-15] MEDS: Acetaminophen 500 MG Tab PO SCH ×3 (08:06→20:50)
[2017-12-15] MEDS: Tamsulosin 0.4 MG Cap.ER PO SCH (20:50)
[2017-12-15] MEDS: atorvaSTATin 10 MG Tab PO SCH (20:50)
[2017-12-15] MEDS: Latanoprost 0.005% Ophth Soln 2.5 ML Bottle EYEBOTH SCH (20:52)
[2017-12-16] MEDS: Omeprazole 20 MG Cap.CR PO SCH (07:36)
[2017-12-16] MEDS: traMADol 50 MG Tab PO SCH ×3 (08:16→19:36)
[2017-12-16] MEDS: Multivitamins with Minerals/Iron/Folic Acid/Lycopene Tab PO SCH (08:16)
[2017-12-16] MEDS: ARIPiprazole 5 MG Tab PO SCH (08:16)
[2017-12-16] MEDS: DULoxetine 30 MG Cap PO SCH (08:16)
[2017-12-16] MEDS: Chondroitin/Glucosamine Cap PO SCH ×2 (08:17→20:24)
[2017-12-16] MEDS: Aspirin 81 MG Tab.EC PO SCH (08:17)
[2017-12-16] MEDS: Acetaminophen 500 MG Tab PO SCH ×3 (08:17→20:25)
[2017-12-16] MEDS: Cholecalciferol (Vitamin D3) 1,000 Unit Tab PO SCH (08:17)
[2017-12-16] MEDS: Magnesium Oxide 500 MG Tab PO SCH (08:17)
[2017-12-16] MEDS: Diclofenac Sodium 1% Gel 100 GM Tube TOP SCH ×3 (08:17→20:27)
[2017-12-16] MEDS: Metoprolol Succinate 25 MG Tab.ER PO SCH (08:21)
[2017-12-16] MEDS: Tamsulosin 0.4 MG Cap.ER PO SCH (20:24)
[2017-12-16] MEDS: Latanoprost 0.005% Ophth Soln 2.5 ML Bottle EYEBOTH SCH (20:24)
[2017-12-16] MEDS: atorvaSTATin 10 MG Tab PO SCH (20:24)
[2017-12-17] MEDS: traMADol 50 MG Tab PO SCH ×3 (07:23→19:57)
[2017-12-17] MEDS: Omeprazole 20 MG Cap.CR PO SCH (07:23)
[2017-12-17] MEDS: Diclofenac Sodium 1% Gel 100 GM Tube TOP SCH ×3 (08:06→20:41)
[2017-12-17] MEDS: Aspirin 81 MG Tab.EC PO SCH (08:59)
[2017-12-17] MEDS: Metoprolol Succinate 25 MG Tab.ER PO SCH (08:59)
[2017-12-17] MEDS: ARIPiprazole 5 MG Tab PO SCH (08:59)
[2017-12-17] MEDS: Multivitamins with Minerals/Iron/Folic Acid/Lycopene Tab PO SCH (08:59)
[2017-12-17] MEDS: Magnesium Oxide 500 MG Tab PO SCH (08:59)
[2017-12-17] MEDS: Chondroitin/Glucosamine Cap PO SCH ×2 (09:00→20:41)
[2017-12-17] MEDS: DULoxetine 30 MG Cap PO SCH (09:00)
[2017-12-17] MEDS: Cholecalciferol (Vitamin D3) 1,000 Unit Tab PO SCH (09:00)
[2017-12-17] MEDS: Acetaminophen 500 MG Tab PO SCH ×3 (09:00→20:41)
[2017-12-17] MEDS: Tamsulosin 0.4 MG Cap.ER PO SCH (20:40)
[2017-12-17] MEDS: atorvaSTATin 10 MG Tab PO SCH (20:40)
[2017-12-17] MEDS: Latanoprost 0.005% Ophth Soln 2.5 ML Bottle EYEBOTH SCH (20:41)
[2017-12-18] MEDS: traMADol 50 MG Tab PO SCH ×2 (04:55→09:45)
[2017-12-18] MEDS: Omeprazole 20 MG Cap.CR PO SCH (07:45)
[2017-12-18] MEDS ORDERED: Ondansetron 4 MG Tab.DIS ONE (07:54)
[2017-12-18] MEDS ORDERED: Aspirin 81 MG Tab.Chew ONE (08:18)
[2017-12-18] MEDS ORDERED: Nitroglycerin 0.4 MG Tab.SL ONE (08:18)
[2017-12-18] MEDS ORDERED: Aspirin 81 MG Tab.Chew PO ONE (08:35)
[2017-12-18] MEDS ORDERED: Nitroglycerin 0.4 MG Tab.SL SL PRN (08:35)
[2017-12-18 08:52] LABS: CHLORIDE,CL 99 mmol/L (98-115); SODIUM,NA 137 mmol/L (136-145)
[2017-12-18] MEDS ORDERED: Ondansetron 4 MG Tab.DIS PO PRN (08:57)
[2017-12-18] MEDS ORDERED: Pantoprazole 40 MG in Sodium Chloride 0.9% 100 ML IV ONE (09:14)
[2017-12-18] MEDS ORDERED: Sodium Chloride 0.9% 1,000 ML IV SCH (09:15)
[2017-12-18] MEDS ORDERED: Pantoprazole 40 MG Vial IVPUSH SCH (09:30)
[2017-12-18] MEDS: Acetaminophen 500 MG Tab PO SCH (09:37)
[2017-12-18] MEDS ORDERED: Acetaminophen 500 MG Tab PO ONE (09:40)
[2017-12-18] MEDS: DULoxetine 30 MG Cap PO SCH (09:50)
[2017-12-18] MEDS: Metoprolol Succinate 25 MG Tab.ER PO SCH (09:54)
[2017-12-18] MEDS ORDERED: Levofloxacin/Dextrose 5%-Water 500 MG in Premix Bag 1 BAG IV SCH (10:00)
[2017-12-18] MEDS: Multivitamins with Minerals/Iron/Folic Acid/Lycopene Tab PO SCH (10:29)
[2017-12-18] MEDS: Aspirin 81 MG Tab.EC PO SCH (10:30)
[2017-12-18] MEDS: Magnesium Oxide 500 MG Tab PO SCH (10:30)
[2017-12-18] MEDS: Cholecalciferol (Vitamin D3) 1,000 Unit Tab PO SCH (10:30)
[2017-12-18] MEDS: Chondroitin/Glucosamine Cap PO SCH (10:30)
[2017-12-18] MEDS: Diclofenac Sodium 1% Gel 100 GM Tube TOP SCH (10:32)
[2017-12-18] MEDS: ARIPiprazole 5 MG Tab PO SCH (10:32)
--- NOTE | 2017-12-18 12:31 | PCM.DCSUM1 ---
Discharge Summary - Discharge Data Discharge Date: 12/18/17 Discharge Disposition: DC/Tfer to [facility] Condition: Fair - Patient Summary/Data Consults: Consultations 12/11/17 18:34 PT Evaluation and Treatment [CONS] Routine - Discharge Plan Home Medications: Home Meds Acetaminophen [Tylenol Extra Strength] 1,000 mg PO TID 03/16/14 [History] DULoxetine [Cymbalta] 60 mg PO DAILY 03/16/14 [History] Multivitamin [Multi-Vitamin Daily] 1 tab PO DAILY 03/16/14 [History] Omeprazole 60 mg PO ACBREAKFAST 03/16/14 [History] traMADol [Ultram] 50 mg PO Q8H 03/16/14 [History] Aspirin [Halfprin] 81 mg PO DAILY 10/30/17 [History] Gluc HCl/Csa/Tran Hy/Hyalur Ac [Glucosamine Chondroitin] 1 each PO BID 10/30/17 [History] Magnesium Oxide 400 mg PO DAILY 10/30/17 [History] Latanoprost 1 drop EYEBOTH BEDTIME 11/12/17 [History] Metoprolol Succinate [Toprol XL] 12.5 mg PO DAILY #60 tab.er 11/15/17 [Rx] ARIPiprazole [Abilify] 5 mg PO DAILY 12/04/17 [History] Cholecalciferol (Vitamin D3) [Thera-D] 4,000 unit PO DAILY 12/04/17 [History] Tamsulosin [Flomax] 0.4 mg PO BEDTIME 12/04/17 [History] atorvaSTATin [Lipitor] 10 mg PO BEDTIME 12/11/17 [History] Diclofenac Sodium [Voltaren] 1 applic TOP TID 12/18/17 [History] - Discharge Summary/Plan Comment DC Time >30 min.: Yes - Patient Data Vitals - Most Recent: Last Vital Signs Temp 38.7 C H 12/18/17 09:37 Pulse 117 H 12/18/17 09:54 Resp 36 H 12/18/17 08:07 BP 99/62 12/18/17 09:54 Pulse Ox 94 L 12/18/17 08:07 Weight - Most Recent: 57.017 kg I&O - Last 24 hours: Intake & Output 12/17/17 12/18/17 12/18/17 22:59 06:59 14:59 Intake Total 600 150 Output Total 350 Balance 600 -200 Lab Results - Last 24 hrs: Laboratory Results - last 24 hr 12/18/17 12/18/17 12/18/17 Range/Units 08:13 08:13 08:15 WBC 14.5 H (5.0-10.0) 10^3/uL RBC 4.20 L (4.50-6.00) 10^6/uL Hgb 12.3 L (13.0-17.0) g/dL Hct 38.8 L (40.0-52.0) % MCV 92.3 H (82.0-92.0) fL MCH 29.3 (27.0-31.0) pg MCHC 31.7 L (32.0-36.0) g/dL RDW 12.5 (11.5-14.5) % Plt Count 586 H D (150-300) 10^3/uL MPV 7.2 L (7.4-10.4) fL Add Manual Diff Yes Neutrophils % (Manual) 91 H (50-70) % Lymphocytes % (Manual) 6 L (20-40) % Monocytes % (Manual) 2 (2-8) % Eosinophils % (Manual) 1 (1-3) % Absolute Neutrophils 13.1950 Lymphocytes # (Manual) 0.8700 Monocytes # (Manual) 0.2900 Eosinophils # (Manual) 0.1450 Platelet Estimate Increased Sodium (136-145) mmol/L Potassium (3.3-5.3) mmol/L Chloride (98-115) mmol/L Carbon Dioxide (21.0-32.0) mmol/L BUN (6-25) mg/dL Creatinine (0.51-1.17) mg/dL Est Cr Clr Drug Dosing mL/min Estimated GFR (MDRD) mL/min Glucose (70-110) mg/dL Lactic Acid (0.4-2.0) mmol/L Calcium (8.7-10.3) mg/dL Magnesium 1.9 (1.8-2.4) mg/dL Total Bilirubin (0.2-1.0) mg/dL AST (15-37) U/L ALT (12-78) U/L Alkaline Phosphatase (46-116) IU/L Troponin I (0.00-0.070) ng/mL B-Natriuretic Peptide 729 H (0-100) pg/mL Total Protein (6.4-8.2) g/dL Albumin (3.00-4.80) g/dL Specimen Type Urine Color (YELLOW) Urine Appearance (CLEAR) Urine pH (5.0-9.0) Ur Specific Barton (1.005-1.030) Urine Protein (NEGATIVE) mg/dL Urine Glucose (UA) (NEGATIVE) mg/dL Urine Ketones (NEGATIVE) mg/dL Urine Occult Blood (NEGATIVE) Urine Nitrite (NEGATIVE) Urine Bilirubin (NEGATIVE) Urine Urobilinogen (0.2-1.0) E.U./dL Ur Leukocyte Esterase (NEGATIVE) Urine RBC /HPF Urine WBC /HPF Ur Epithelial Cells /LPF Urine Bacteria (NONE TO FEW) /HPF 12/18/17 12/18/17 12/18/17 Range/Units 08:15 08:15 09:05 WBC (5.0-10.0) 10^3/uL RBC (4.50-6.00) 10^6/uL Hgb (13.0-17.0) g/dL Hct (40.0-52.0) % MCV (82.0-92.0) fL MCH (27.0-31.0) pg MCHC (32.0-36.0) g/dL RDW (11.5-14.5) % Plt Count (150-300) 10^3/uL MPV (7.4-10.4) fL Add Manual Diff Neutrophils % (Manual) (50-70) % Lymphocytes % (Manual) (20-40) % Monocytes % (Manual) (2-8) % Eosinophils % (Manual) (1-3) % Absolute Neutrophils Lymphocytes # (Manual) Monocytes # (Manual) Eosinophils # (Manual) Platelet Estimate Sodium 137 (136-145) mmol/L Potassium 5.0 (3.3-5.3) mmol/L Chloride 99 (98-115) mmol/L Carbon Dioxide 27.9 (21.0-32.0) mmol/L BUN 28 H (6-25) mg/dL Creatinine 1.06 (0.51-1.17) mg/dL Est Cr Clr Drug Dosing 42.58 mL/min Estimated GFR (MDRD) > 60 mL/min Glucose 121 H (70-110) mg/dL Lactic Acid 1.6 (0.4-2.0) mmol/L Calcium 10.8 H (8.7-10.3) mg/dL Magnesium (1.8-2.4) mg/dL Total Bilirubin 0.6 (0.2-1.0) mg/dL AST 15 (15-37) U/L ALT 18 (12-78) U/L Alkaline Phosphatase 133 H (46-116) IU/L Troponin I 0.04 (0.00-0.070) ng/mL B-Natriuretic Peptide (0-100) pg/mL Total Protein 8.2 (6.4-8.2) g/dL Albumin 3.01 (3.00-4.80) g/dL Specimen Type Urincc Urine Color Yellow (YELLOW) Urine Appearance Clear (CLEAR) Urine pH 5.5 (5.0-9.0) Ur Specific Barton 1.015 (1.005-1.030) Urine Protein Negative (NEGATIVE) mg/dL Urine Glucose (UA) Negative (NEGATIVE) mg/dL Urine Ketones Trace H (NEGATIVE) mg/dL Urine Occult Blood Trace-intact H (NEGATIVE) Urine Nitrite Negative (NEGATIVE) Urine Bilirubin Negative (NEGATIVE) Urine Urobilinogen 0.2 (0.2-1.0) E.U./dL Ur Leukocyte Esterase Negative (NEGATIVE) Urine RBC 0-5 /HPF Urine WBC 0-5 /HPF Ur Epithelial Cells Few /LPF Urine Bacteria Occasional (NONE TO FEW) /HPF Med Orders - Current: Current Medications Discontinued Medications Acetaminophen (Tylenol Extra Strength) 1,000 mg PO TID [facility] Last Admin: 12/18/17 09:37 Dose: 1,000 mg Aripiprazole (Abilify) 5 mg PO DAILY [facility] Last Admin: 12/18/17 10:32 Dose: 5 mg Aspirin (Halfprin) 81 mg PO DAILY [facility] Last Admin: 12/18/17 10:30 Dose: Not Given Aspirin (Aspirin) Confirm Administered Dose 324 mg .ROUTE .STK-MED ONE Stop: 12/18/17 08:19 Last Admin: 12/18/17 08:53 Dose: Not Given Aspirin (Aspirin) 324 mg PO ONETIME ONE Stop: 12/18/17 08:36 Last Admin: 12/18/17 08:18 Dose: 324 mg Atorvastatin Calcium (Lipitor) 10 mg PO BEDTIME [facility] Last Admin: 12/17/17 20:40 Dose: 10 mg Cholecalciferol (Vitamin D3) 4,000 units PO DAILY [facility] Last Admin: 12/18/17 10:30 Dose: Not Given Diclofenac Sodium (Voltaren 1% Gel) 1 gm TOP TID [facility] Last Admin: 12/18/17 10:32 Dose: 1 applic Duloxetine HCl (Cymbalta) 60 mg PO DAILY [facility] Last Admin: 12/18/17 09:50 Dose: 60 mg Glucosamine/Chondroitin (Glucosamine-Chondroitin 500-400 Capsule) 1 cap PO BID [facility] Last Admin: 12/18/17 10:30 Dose: Not Given Sodium Chloride (Normal Saline) 1,000 mls @ 75 mls/hr IV ASDIRECTED [facility] Latanoprost (Xalatan 0.005% Ophth Soln) 0 ml EYEBOTH BEDTIME [facility] Last Admin: 12/17/17 20:41 Dose: 1 drop Lisinopril (Prinivil) 2.5 mg PO BEDTIME [facility] Last Admin: 12/11/17 23:08 Dose: Not Given Magnesium Oxide (Magnesium Oxide) 500 mg PO DAILY [facility] Last Admin: 12/18/17 10:30 Dose: Not Given Metoprolol Succinate (Toprol Xl) 12.5 mg PO DAILY [facility] Last Admin: 12/18/17 09:54 Dose: 12.5 mg Multivitamins/Minerals (Centrum) 1 tab PO DAILY [facility] Last Admin: 12/18/17 10:29 Dose: Not Given Nitroglycerin (Nitrostat) Confirm Administered Dose 0.4 mg .ROUTE .CatchTheEye-MED ONE Stop: 12/18/17 08:19 Last Admin: 12/18/17 08:19 Dose: 0.4 mg Nitroglycerin (Nitrostat) 0.4 mg SL Q5M PRN PRN Reason: Chest Pain Omeprazole (Omeprazole) 60 mg PO DAILY@0700 [facility] Last Admin: 12/14/17 06:28 Dose: 60 mg Omeprazole (Omeprazole) 40 mg PO ACBREAKFAST [facility] Last Admin: 12/18/17 07:45 Dose: Not Given Ondansetron HCl (Zofran Odt) Confirm Administered Dose 4 mg .ROUTE .STCatchTheEye-MED ONE Stop: 12/18/17 07:55 Last Admin: 12/18/17 08:53 Dose: Not Given Ondansetron HCl (Zofran Odt) 4 mg PO Q4H PRN PRN Reason: Nausea/Vomiting Last Admin: 12/18/17 07:58 Dose: 4 mg Pantoprazole Sodium (Protonix Iv) 40 mg IVPUSH ONETIME [facility] Stop: 12/18/17 10:30 Tamsulosin HCl (Flomax) 0.4 mg PO BEDTIME [facility] Last Admin: 12/17/17 20:40 Dose: 0.4 mg Tramadol HCl (Ultram) 50 mg PO Q8H [facility] Last Admin: 12/12/17 10:33 Dose: 50 mg Tramadol HCl (Ultram) 50 mg PO TID@0800,1400,2000 [facility] Last Admin: 12/18/17 09:45 Dose: Not Given
[2017-12-18] MEDS ORDERED: Cefepime 2 GM in Sodium Chloride 0.9% 50 ML IV SCH (14:00)
[2017-12-18 17:52] VITALS: BP 99/62
== END 2017-12-18 09:29 | disposition critical access hospital (66) | DRG 552 ==
LOC: KA.MS 14:34
PROVIDERS: ADMIT Physician Assistant; ATTEND Family Medicine
DX: M50.30 Other cervical disc degeneration, unspecified cervical region (principal); I13.0 Hypertensive heart and chronic kidney disease with heart failure and stage 1 through stage 4 chronic kidney disease, or unspecified chronic kidney disease; I50.40 Unspecified combined systolic (congestive) and diastolic (congestive) heart failure; R53.1 Weakness; N18.3 Chronic kidney disease, stage 3 (moderate); F41.8 Other specified anxiety disorders; F32.9 Major depressive disorder, single episode, unspecified; K21.9 Gastro-esophageal reflux disease without esophagitis; N40.0 Benign prostatic hyperplasia without lower urinary tract symptoms; I25.2 Old myocardial infarction; Z85.028 Personal history of other malignant neoplasm of stomach; Z87.891 Personal history of nicotine dependence; Z79.899 Other long term (current) drug therapy; Z88.0 Allergy status to penicillin
CPT/HCPCS: 36415; 71045; 80053; 81001; 83605; 83735; 83880; 84484; 85025; 93005; 97012-GP; 97110-GP; 97162-GP; A9270-GY

== ENCOUNTER 2017-12-18 09:29 | Inpatient (IN) | payer MEDICARE, OTHER ==
[2017-12-18] MEDS ORDERED: EPINEPHrine 1:10,000 1 MG/10 ML Syringe IVPUSH PRN (10:07)
[2017-12-18] MEDS ORDERED: Nitroglycerin 0.4 MG Tab.SL SL PRN (10:07)
[2017-12-18] MEDS ORDERED: Atropine 0.1 MG/ML 10 ML Syringe IVPUSH PRN (10:07)
[2017-12-18] MEDS ORDERED: Lidocaine 2% 100 MG/5 ML Syringe IVPUSH PRN (10:07)
[2017-12-18] MEDS ORDERED: Levofloxacin/Dextrose 5%-Water 100 ML IV SCH (10:30)
[2017-12-18] MEDS ORDERED: Acetaminophen 325 MG Tab PO PRN (11:15)
[2017-12-18] MEDS ORDERED: Levofloxacin/Dextrose 5%-Water 50 ML IV SCH (11:30)
--- NOTE | 2017-12-18 12:30 | PCM.HP ---
H&P History of Present Illness - General Date of Service: 12/18/17 Admit Problem/Dx: Admission Diagnosis/Problem Admission Diagnosis/Problem Pneumonia of right lower lobe due to infectious organism Source of Information: Patient, Old Records, RN, Significant Other - History of Present Illness Initial Comments - Free Text/Narative: Mr. Lopez had been doing well with physical rehabilitation in swing bed status until the morning of transfer to acute care status when he developed nausea, shortness of breath, and chest pain. He was also noted to be tachycardic with a fever of >38 degrees Celsius. I was notified around 814 at which time labs and EKG were ordered along with ASA and nitroglycerin. Upon my evaluation of the patient shortly after 829, he states he continues to have pain in his epigastrium and chest, which feels different from his chronic abdominal, neck and shoulder pain. The pain is unchanged following nitroglycerin administration. His nausea improved following ondansetron administration. He denies any other acute complaints. Subsequent evaluation was performed following IV PPI administration and he reported complete resolution of pain and admitting to then feeling well. He denied any other complaints. - Related Data Allergies/Adverse Reactions: Allergies Allergy/AdvReac Type Severity Reaction Status Date / Time Penicillins Allergy Hives Verified 12/18/17 10:24 BEE STINGS Allergy Severe Anaphylactic Uncoded 12/18/17 10:24 Shock Home Medications: Home Meds Acetaminophen [Tylenol Extra Strength] 1,000 mg PO TID 03/16/14 [History] DULoxetine [Cymbalta] 60 mg PO DAILY 03/16/14 [History] Multivitamin [Multi-Vitamin Daily] 1 tab PO DAILY 03/16/14 [History] Omeprazole 60 mg PO ACBREAKFAST 03/16/14 [History] traMADol [Ultram] 50 mg PO Q8H 03/16/14 [History] Aspirin [Halfprin] 81 mg PO DAILY 10/30/17 [History] Gluc HCl/Csa/Tran Hy/Hyalur Ac [Glucosamine Chondroitin] 1 each PO BID 10/30/17 [History] Magnesium Oxide 400 mg PO DAILY 10/30/17 [History] Latanoprost 1 drop EYEBOTH BEDTIME 11/12/17 [History] Metoprolol Succinate [Toprol XL] 12.5 mg PO DAILY #60 tab.er 11/15/17 [Rx] ARIPiprazole [Abilify] 5 mg PO DAILY 12/04/17 [History] Cholecalciferol (Vitamin D3) [Thera-D] 4,000 unit PO DAILY 12/04/17 [History] Tamsulosin [Flomax] 0.4 mg PO BEDTIME 12/04/17 [History] atorvaSTATin [Lipitor] 10 mg PO BEDTIME 12/11/17 [History] Diclofenac Sodium [Voltaren] 1 applic TOP TID 12/18/17 [History] Past Medical History HEENT History: Reports: Cataract, Impaired Vision Cardiovascular History: Reports: Heart Failure, Hypertension Respiratory History: Reports: None Gastrointestinal History: Reports: Other (See Below) Other Gastrointestinal History: esophageal ulcers,abdominal hernia Genitourinary History: Reports: BPH Musculoskeletal History: Reports: Arthritis, Back Pain, Chronic, Osteoarthritis , Osteoporosis Other Musculoskeletal History: chronic ankle pain Psychiatric History: Reports: Anxiety, Depression Hematologic History: Reports: Anemia, Blood Transfusion(s) Oncologic (Cancer) History: Reports: Basal Cell Carcinoma, Squamous Cell Carcinoma Other Oncologic History: neoplasm of uncertain behavior of stomach, intestines and rectum - Infectious Disease History Infectious Disease History: Reports: Chicken Pox, Measles, Mumps - Past Surgical History Head Surgeries/Procedures: Reports: None HEENT Surgical History: Reports: Cataract Surgery, Oral Surgery, Tonsillectomy Cardiovascular Surgical History: Reports: None GI Surgical History: Reports: Colonoscopy, Other (See Below) Other GI Surgeries/Procedures: abdominal surgery to reconnect stomach and 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 Male Surgical History: Reports: None Musculoskeletal Surgical History: Reports: Hip Replacement Oncologic Surgical History: Reports: None Dermatological Surgical History: Reports: None Social & Family History - Family History Cardiac: Reports: High Cholesterol, Hypertension Musculoskeletal: Reports: Arthritis - Tobacco Use Smoking Status *Q: Former Smoker Used Tobacco, but Quit: Yes Month/Year Tobacco Last Used: 11/15 - Caffeine Use Caffeine Use: Reports: Soda Other Caffeine Use: regular H&P Review of Systems - Review of Systems: Review Of Systems: See Below General: Reports: Fever, Chills, Malaise, Weakness, Fatigue, Decreased Appetite HEENT: Denies: Headaches, Hearing Changes, Visual Changes Pulmonary: Reports: Shortness of Breath, Cough. Denies: Pleuritic Chest Pain, Sputum, Hemoptysis Cardiovascular: Reports: Chest Pain. Denies: Palpitations, Edema, Lightheadedness Gastrointestinal: Reports: Abdominal Pain. Denies: Bloody Stool, Constipation, Diarrhea Genitourinary: Denies: Dysuria, Frequency, Hematuria Musculoskeletal: Reports: Neck Pain, Shoulder Pain, Joint Pain Skin: Denies: Rash, Wound, Change in Color Psychiatric: Reports: Confusion (per nursing at times). Denies: Agitation, Hallucinations Neurological: Reports: Weakness. Denies: Headache, Numbness, Tremors, Trouble Speaking Exam - Exam Exam: See Below - Vital Signs Vital Signs: Last Vital Signs Temp 37.4 C 12/18/17 11:00 Pulse 104 H 12/18/17 11:00 Resp 20 12/18/17 11:00 BP 77/48 L 12/18/17 11:00 Pulse Ox 93 L 12/18/17 11:16 Weight: 57.017 kg - Exam Physical Exam Comments:: GENERAL: Cachectic and ill-appearing elderly white male lying in hospital bed in no acute distress. HEENT: Normocephalic, atraumatic. Conjunctiva clear. Nares patent without discharge. Mucous membranes moist, posterior pharynx unremarkable. NECK: Supple, no masses. CV: Tachycardic, regular rhythm, no murmurs, rubs, or gallops. 2+ radial pulses. PULMONARY: Normal effort, diminished in bases bilaterally, no wheezes, rales, or rhonchi. ABDOMEN: Positive bowel sounds, soft, nontender, nondistended. EXTREMITIES: No edema, cyanosis, or clubbing. MUSCULOSKELETAL: Moves all extremities well. NEUROLOGICAL: CN II-XII intact. No obvious deficits. DERMATOLOGIC: Ashen, pale color. PSYCHIATRIC: Alert, oriented to person, place, and situation. - Patient Data Lab Results Last 24 hrs: Laboratory Results - last 24 hr 12/18/17 Range/Units 08:15 C-Reactive Protein 43.8 H (0.0-0.9) mg/dL Problem List Initiated/Reviewed/Updated: Yes Orders Last 24hrs: Active Orders 24 hr Category Date Time Status Patient Status [ADT] Routine ADT 12/18/17 11:15 Ordered Cardiac Monitoring [RC] 0300,0700,1100,1500,1900,2300 Care 12/18/17 11:24 Active Intake and Output [RC] QSHIFT Care 12/18/17 11:16 Active Oxygen Therapy [RC] .PRN Care 12/18/17 11:16 Active Up With Assistance [RC] ASDIRECTED Care 12/18/17 11:15 Active Vital Signs [RC] 0300,0700,1100,1500,1900,2300 Care 12/18/17 11:15 Active PT Evaluation and Treatment [CONS] Routine Cons 12/18/17 11:20 Active Heart Healthy Diet [DIET] Diet 12/18/17 Lunch Active CBC WITH AUTO DIFF [HEME] AM Lab 12/19/17 05:11 Ordered COMPREHENSIVE METABOLIC PN,CMP [CHEM] AM Lab 12/19/17 05:11 Ordered CREATININE W/GFR [CHEM] Routine Lab 12/21/17 12:00 Ordered CRP [C-REACTIVE PROTEIN] [CHEM] AM Lab 12/19/17 05:11 Ordered VANCOMYCIN TROUGH [CHEM] Routine Lab 12/21/17 12:00 Ordered ARIPiprazole [Abilify] Med 12/19/17 09:00 Active 5 mg PO DAILY Acetaminophen [Tylenol Extra Strength] Med 12/18/17 14:00 Active 1,000 mg PO TID Aspirin [Halfprin] Med 12/19/17 09:00 Active 81 mg PO DAILY Atropine [Atropine 0.1 MG/ML] Med 12/18/17 10:07 Active 0 mg IVPUSH ASDIRECTED PRN Cefepime [Maxipime] 2 gm Med 12/18/17 14:00 Active Sodium Chloride 0.9% [Normal Saline] 50 ml IV Q8HR Cholecalciferol (Vitamin D3) [Vitamin D3] Med 12/19/17 09:00 Active 4,000 units PO DAILY Chondroitin/Glucosamine [Glucosamine-Chondroitin 500- Med 12/18/17 21:00 Active 400 Capsule] 1 cap PO BID DULoxetine [Cymbalta] Med 12/19/17 09:00 Active 60 mg PO DAILY Diclofenac Sodium [Voltaren 1% Gel] Med 12/18/17 14:00 Active 1 gm TOP TID EPINEPHrine [EPINEPHrine 1:10,000] Med 12/18/17 10:07 Active 1 mg IVPUSH ASDIRECTED PRN Enoxaparin [Lovenox] Med 12/19/17 09:00 Active 40 mg SUBCUT DAILY FA/Lycopene/Lut/MV,Ca,Iron,Min [Centrum] Med 12/19/17 09:00 Active 1 tab PO DAILY Latanoprost [Xalatan 0.005% Ophth Soln] Med 12/18/17 21:00 Active 0 ml EYEBOTH BEDTIME Levofloxacin/Dextrose 5%-Water [Levaquin in D5W 250 MG/ Med 12/18/17 11:30 Active 50 ML] 50 ml IV Q48H Levofloxacin/Dextrose 5%-Water [Levaquin in D5W 500 MG/ Med 12/18/17 10:30 Active 100 ML] 100 ml IV Q48H Lidocaine 2% [Xylocaine 2%] Med 12/18/17 10:07 Active 0 mg IVPUSH ASDIRECTED PRN Magnesium Oxide Med 12/19/17 09:00 Active 500 mg PO DAILY Metoprolol Succinate [Toprol XL] Med 12/19/17 09:00 Active 12.5 mg PO DAILY Nitroglycerin [Nitrostat] Med 12/18/17 10:07 Active 0.4 mg SL ASDIRECTED PRN Omeprazole Med 12/19/17 07:30 Active 60 mg PO ACBREAKFAST Tamsulosin [Flomax] Med 12/18/17 21:00 Active 0.4 mg PO BEDTIME Vancomycin 1 gm Med 12/18/17 12:30 Active Sodium Chloride 0.9% [Normal Saline] 250 ml IV Q24H Vancomycin Pharmacy to Dose [Pharmacy to Dose - Med 12/18/17 10:15 Pending Vancomycin] 1 dose .XX ASDIRECTED atorvaSTATin [Lipitor] Med 12/18/17 21:00 Active 10 mg PO BEDTIME traMADol [Ultram] Med 12/18/17 14:00 Active 50 mg PO TID@0800,1400,2000 Resuscitation Status Routine Resus Stat 12/18/17 11:15 Ordered Medication Orders Acetaminophen (Tylenol Extra Strength) 1,000 mg PO TID [facility] Aripiprazole (Abilify) 5 mg PO DAILY [facility] Aspirin (Halfprin) 81 mg PO DAILY [facility] Atorvastatin Calcium (Lipitor) 10 mg PO BEDTIME [facility] Atropine Sulfate (Atropine 0.1 Mg/Ml) 0 mg IVPUSH ASDIRECTED PRN PRN Reason: Heart Cholecalciferol (Vitamin D3) 4,000 units PO DAILY [facility] Diclofenac Sodium (Voltaren 1% Gel) 1 gm TOP TID [facility] Duloxetine HCl (Cymbalta) 60 mg PO DAILY [facility] Enoxaparin Sodium (Lovenox) 40 mg SUBCUT DAILY [facility] Epinephrine HCl (Epinephrine 1:10,000) 1 mg IVPUSH ASDIRECTED PRN PRN Reason: Heart Glucosamine/Chondroitin (Glucosamine-Chondroitin 500-400 Capsule) 1 cap PO BID [facility] Cefepime HCl 2 gm/ Sodium (Chloride) 60 mls @ 120 mls/hr IV Q8HR [facility] Levofloxacin/Dextrose (Levaquin In D5w 500 Mg/100 Ml) 100 mls @ 100 mls/hr IV Q48H [facility] Last Admin: 12/18/17 10:50 Dose: 100 mls/hr Vancomycin HCl 1 gm/ Sodium (Chloride) 270 mls @ 270 mls/hr IV Q24H [facility] Levofloxacin/Dextrose (Levaquin In D5w 250 Mg/50 Ml) 50 mls @ 50 mls/hr IV Q48H [facility] Last Admin: 12/18/17 12:11 Dose: 50 mls/hr Latanoprost (Xalatan 0.005% Ophth Soln) 0 ml EYEBOTH BEDTIME [facility] Lidocaine HCl (Xylocaine 2%) 0 mg IVPUSH ASDIRECTED PRN PRN Reason: Heart Magnesium Oxide (Magnesium Oxide) 500 mg PO DAILY [facility] Metoprolol Succinate (Toprol Xl) 12.5 mg PO DAILY [facility] Multivitamins/Minerals (Centrum) 1 tab PO DAILY [facility] Nitroglycerin (Nitrostat) 0.4 mg SL ASDIRECTED PRN PRN Reason: Heart Omeprazole (Omeprazole) 60 mg PO ACBREAKFAST [facility] Tamsulosin HCl (Flomax) 0.4 mg PO BEDTIME [facility] Tramadol HCl (Ultram) 50 mg PO TID@0800,1400,2000 [facility] Vancomycin HCl (Pharmacy To Dose - Vancomycin) 1 dose .XX ASDIRECTED [facility] Assessment/Plan Comment:: HPI summary: 82yoM with history of multiple recent hospitalizations and history notable for HFrEF with recent echocardiogram with EF of 25%, recent NSTEMI, recent acute R-sided weakness for which he underwent evaluation for CVA, and multilevel degenerative disk disease. He had been doing well with physical rehabilitation in swing bed status until the morning of transfer to acute care status when he developed nausea, shortness of breath, and chest pain. He was also noted to be tachycardic with a fever of >38 degrees Celsius. I was notified around 814 at which time labs and EKG were ordered along with ASA and nitroglycerin. Upon my evaluation of the patient shortly after 829, he states he continues to have pain in his epigastrium and chest, which feels different from his chronic abdominal, neck and shoulder pain. The pain is unchanged following nitroglycerin administration. His nausea improved following ondansetron administration. He denies any other acute complaints. Subsequent evaluation was performed following IV PPI administration and he reported complete resolution of pain and admitting to then feeling well. He denied any other complaints. 0930: Initial work-up notable for fever, tachycardia, leukocytosis with neutrophilia, significantly elevated CRP, and CXR showing new RLL infiltrate. Clinical status consistent with sepsis given qSOFA = 2. Fluid resuscitation abilities limited by decreased EF and elevated BNP at 729. Troponin <0.04 and EKG unchanged from prior. 1245: 3 hour follow-up troponin noted to be elevated at 0.32. Had an extensive conversation with the patient as well as with his ; charge nurse also present during discussions. They are adamant that they do not want to be transferred for any further management even if this means more rapid decline or . He has been pain free for the past >3 hours since administration of the IV pantoprazole and before considering further medical management for VT or consideration of other cares, they would like to await the next repeat troponin. Admission diagnoses: # Sepsis # RLL pneumonia, healthcare associated # Elevated BNP # HFrEF # Elevated troponin # Hx NSTEMI # Multilevel Degenerative Disk Disease # GERD # CKD, stage 3 # BPH # Anemia # Depression Plan: - NS at 75cc/hr - IV antibiotics for hospital associated pneumonia with vancomycin, cefepime, and levofloxacin given penicillin allergy - IV pantoprazole - Telemetry - Repeat troponin in 3h - Await blood cultures, which have been obtained prior to antibiotic administration Hospitalization details: # PPX: Enoxaparin. # Code status: DNR/DNI. # Emergency contact: , who was updated at bedside # Disposition: Transfer to inpatient acute status.
[2017-12-18] MEDS: Cefepime 2 GM in Sodium Chloride 0.9% 50 ML IV SCH ×2 (15:28→23:12)
[2017-12-18] MEDS: Acetaminophen 500 MG Tab PO SCH ×2 (15:33→23:11)
[2017-12-18] MEDS: traMADol 50 MG Tab PO SCH ×2 (15:34→23:08)
[2017-12-18] MEDS: Diclofenac Sodium 1% Gel 100 GM Tube TOP SCH ×2 (15:36→23:11)
[2017-12-18] MEDS ORDERED: Docusate Sodium 100 MG Cap PO ONE (16:20)
[2017-12-18] MEDS ORDERED: Ondansetron 4 MG Tab.DIS ONE (16:49)
[2017-12-18] MEDS ORDERED: Ondansetron 4 MG Tab.DIS PO PRN (16:52)
[2017-12-18] MEDS ORDERED: Promethazine 25 MG/ML SDV ONE ×2 (17:58→18:03)
[2017-12-18] MEDS ORDERED: Promethazine 12.5 MG in Sodium Chloride 0.9% 50 ML IV ONE (18:00)
[2017-12-18] MEDS: Morphine 2 MG/ML Syringe IVPUSH PRN ×2 (20:25→21:35)
[2017-12-18] MEDS ORDERED: Chondroitin/Glucosamine Cap PO SCH (21:00)
[2017-12-18] MEDS ORDERED: Tamsulosin 0.4 MG Cap.ER PO SCH (21:00)
[2017-12-18] MEDS ORDERED: Latanoprost 0.005% Ophth Soln 2.5 ML Bottle EYEBOTH SCH (21:00)
[2017-12-18] MEDS ORDERED: atorvaSTATin 10 MG Tab PO SCH (21:00)
[2017-12-18] MEDS: LORazepam 2 MG/ML SDV IVPUSH PRN ×2 (21:15→22:15)
[2017-12-19] MEDS: Morphine 2 MG/ML Syringe IVPUSH PRN (03:50)
[2017-12-19 06:06] VITALS: BP 72/42
[2017-12-19] MEDS: Cefepime 2 GM in Sodium Chloride 0.9% 50 ML IV SCH (06:09)
[2017-12-19] MEDS ORDERED: Omeprazole 20 MG Cap.CR PO SCH (07:30)
[2017-12-19] MEDS ORDERED: Enoxaparin 40 MG/0.4 ML Syringe SUBCUT SCH (09:00)
[2017-12-19] MEDS ORDERED: Metoprolol Succinate 25 MG Tab.ER PO SCH (09:00)
[2017-12-19] MEDS ORDERED: ARIPiprazole 5 MG Tab PO SCH (09:00)
[2017-12-19] MEDS ORDERED: DULoxetine 30 MG Cap PO SCH (09:00)
[2017-12-19] MEDS ORDERED: Magnesium Oxide 500 MG Tab PO SCH (09:00)
[2017-12-19] MEDS ORDERED: Cholecalciferol (Vitamin D3) 1,000 Unit Tab PO SCH (09:00)
[2017-12-19] MEDS ORDERED: Aspirin 81 MG Tab.EC PO SCH (09:00)
[2017-12-19] MEDS ORDERED: Multivitamins with Minerals/Iron/Folic Acid/Lycopene Tab PO SCH (09:00)
== END 2017-12-19 07:40 | disposition expired | DRG 871 ==
LOC: KA.MS 09:29
PROVIDERS: ADMIT Family Medicine; ATTEND Family Medicine
DX: A41.9 Sepsis, unspecified organism (principal); J18.9 Pneumonia, unspecified organism; I50.20 Unspecified systolic (congestive) heart failure; I13.0 Hypertensive heart and chronic kidney disease with heart failure and stage 1 through stage 4 chronic kidney disease, or unspecified chronic kidney disease; Z66 Do not resuscitate; F41.8 Other specified anxiety disorders; R79.89 Other specified abnormal findings of blood chemistry; I25.2 Old myocardial infarction; K21.9 Gastro-esophageal reflux disease without esophagitis; N18.3 Chronic kidney disease, stage 3 (moderate); N40.0 Benign prostatic hyperplasia without lower urinary tract symptoms; D64.9 Anemia, unspecified; M19.90 Unspecified osteoarthritis, unspecified site; F32.9 Major depressive disorder, single episode, unspecified; Z85.028 Personal history of other malignant neoplasm of stomach; Z88.0 Allergy status to penicillin; Z79.899 Other long term (current) drug therapy; Y95 Nosocomial condition; M54.9 Dorsalgia, unspecified; R10.9 Unspecified abdominal pain; M54.2 Cervicalgia; M25.519 Pain in unspecified shoulder; Z87.891 Personal history of nicotine dependence; Z96.649 Presence of unspecified artificial hip joint; G89.29 Other chronic pain
CPT/HCPCS: 86140; 93005; A9270-GY; J0692; J1956; J2060; J2270; J2550; J3370; J7050